=== PATIENT | female | born 1985 | race African-American/Black ===

== ENCOUNTER 2017-10-17 16:10 | Emergency (ER) | payer OTHER ==
--- NOTE | 2017-10-17 16:44 | ED Physician Documentation ---
PD HPI URI - Stated complaint Stated Complaint: SOA, FEVER - Chief complaint Chief Complaint: Resp - History obtained from History obtained from: Patient - History of Present Illness Timing - onset: How many weeks ago (2) Timing duration: Weeks (2) Timing details: Gradual onset, Still present Associated symptoms: Chills, Nasal congestion, Sinus pain, Productive cough, Dyspnea. No: Fever, Hemoptysis, NVD Contributing factors: No: Sick contact, Travel, Immunocompromised, COPD / asthma Improves by: No: Medication (seen PCP earlier in week and got Rx for Tessalon only and not improved, and cough worse/keeping her awake at night. Feeling wheezing and having purulent sputum.) Worsened by: Activity, Position (seems to cough more lying down at night.) Similar symptoms before: Diagnosis (has occasional bronchitis about every 2-3 years.) Recently seen: Clinic (earlier this week with Rx Tessalon) Review of Systems Constitutional: reports: Chills, Myalgias. denies: Fever Nose: reports: Congestion, Sinus pressure / pain Throat: reports: Sore throat Cardiac: denies: Chest pain / pressure Respiratory: reports: Dyspnea, Cough, Wheezing GI: denies: Abdominal Pain, Nausea, Vomiting, Diarrhea : denies: Dysuria Skin: denies: Rash, Lesions PD PAST MEDICAL HISTORY - Past Medical History Past Medical History: No - Past Surgical History Past Surgical History: No - Present Medications Home Medications: Ambulatory Orders Medication Instructions Recorded Confirmed Benzonatate [Tessalon Perle] 100 mg PO BID #14 capsule 04/16/15 10/17/17 Albuterol Sulf [Ventolin Hfa 1 - 2 puffs INH Q4HR PRN #1 inhaler 10/17/17 Inhaler] Dexamethasone [Decadron] 4 mg PO DAILY #5 tablet 10/17/17 Doxycycline Monohydrate 100 mg PO BID #10 tablet 10/17/17 guaiFENesin/CODEINE [Robitussin AC] 10 ml PO Q6H PRN #240 ml 10/17/17 - Allergies Allergies/Adverse Reactions: Allergies Allergy/AdvReac Type Severity Reaction Status Date / Time No Known Drug Allergies Allergy Verified 10/17/17 16:24 - Social History Does the pt smoke?: Yes Smoking Status: Current every day smoker Does the pt drink ETOH?: Yes Does the pt have substance abuse?: No - Immunizations Immunizations are current?: Yes PD ED PE NORMAL - Vitals Vital signs reviewed: Yes - General General: Alert and oriented X 3, No acute distress, Well developed/nourished - HEENT HEENT: Ears normal, Moist mucous membranes, Pharynx benign - Neck Neck: Supple, no meningeal sign, No adenopathy - Cardiac Cardiac: RRR, No murmur - Respiratory Respiratory: Other (scattered wheezes noted) - Abdomen Abdomen: Soft, Non tender - Derm Derm: Normal color, Warm and dry - Neuro Neuro: Alert and oriented X 3, No motor deficit, Normal speech Results - Vitals Vitals: Vital Signs - 24 hr 10/17/17 10/17/17 16:21 17:24 Temperature 36.4 C L Heart Rate 62 77 Respiratory 16 16 Rate Blood Pressure 143/89 H 132/66 H O2 Saturation 99 98 Oxygen O2 Source Room air Departure - Departure Disposition: 01 Home, Self Care Clinical Impression: Upper respiratory infection Qualifiers: URI type: unspecified URI Qualified Code(s): J06.9 - Acute upper respiratory infection, unspecified Condition: Stable Record reviewed to determine appropriate education?: Yes Instructions: ED Upper Resp Infec Abx Tx Follow-Up: Mary Pérez MD [Primary Care Provider] - Prescriptions: Albuterol Sulf [Ventolin Hfa Inhaler] 1 - 2 puffs INH Q4HR PRN #1 inhaler PRN Reason: Shortness Of Air/Wheezing Dexamethasone [Decadron] 4 mg PO DAILY #5 tablet Doxycycline Monohydrate 100 mg PO BID #10 tablet guaiFENesin/CODEINE [Robitussin AC] 10 ml PO Q6H PRN #240 ml PRN Reason: Cough Comments: Drink lots of fluids. Continue the Tessalon if needed for cough. Add cough medicine if needed. Use the albuterol inhaler 2 puffs 4 times a day for the next 7-10 days to help with cough and wheezing. Decadron steroid anti- inflammatory daily for 5 days to help reduce inflammation of the bronchioles and therefore cough and congestion. Doxycycline twice daily for possibility of bacterial infection (still be viral but difficult to tell). Recheck if not improving over the next several days. Discharge Date/Time: 10/17/17 17:24
[2017-10-17 17:27] VITALS: BP 132/66
== END 2017-10-17 17:24 | disposition home or self-care (01) ==
LOC: ED 16:10
DX: J06.9 Acute upper respiratory infection, unspecified (principal); F17.200 Nicotine dependence, unspecified, uncomplicated
CPT/HCPCS: 99283

== ENCOUNTER 2017-11-07 11:43 | Outpatient (CLI) | payer OTHER | END 2017-11-07 11:44 | disposition critical access hospital (66) | LOC: EMS 11:43 | PROVIDERS: ATTEND Surgery | DX: R41.82 Altered mental status, unspecified (principal) | CPT/HCPCS: A0425; A0429 ==

== ENCOUNTER 2017-11-07 12:05 | Inpatient (IN) | payer OTHER ==
[2017-11-07] MEDS ORDERED: SODIUM CHLORIDE 0.9% 1,000 ML IV ONE (12:24)
[2017-11-07] MEDS ORDERED: LORazepam 2 MG/ML VIAL IVP STA ×2 (12:25→13:28)
--- NOTE | 2017-11-07 12:37 | ED Physician Documentation ---
PD HPI ALTERED MENTAL STATUS - Stated complaint Stated Complaint: MHE - Chief complaint Chief Complaint: MHE - History obtained from History obtained from: EMS - History of Present Illness Timing - onset: Unknown (This is a young woman who presents by ambulance for altered mental status. Reportedly her name is Kandace. I guess a friend called EMS because she was acting funny. She walks to the ambulance but really has not been verbal, except the paramedics report that when she was asked what kind of music she like, she replied "gospel music." She is kept her arms in a funny position the whole time. There was no obvious evidence of drug use or paraphernalia on site. We do not really know anything about her, no medical history is available and she is nonverbal and not really cooperative with us.) Review of Systems Unable to obtain: AMS PD PAST MEDICAL HISTORY - Present Medications Home Medications: Ambulatory Orders Medication Instructions Recorded Confirmed Home Medications Unobtainable 11/07/17 11/07/17 [HOME MEDICATIONS UNOBTAINABLE] - Allergies Allergies/Adverse Reactions: Allergies Allergy/AdvReac Type Severity Reaction Status Date / Time No Known Drug Allergies Allergy Verified 10/17/17 16:24 PD ED PE NORMAL - Vitals Vital signs reviewed: Yes - General General: Other (She is alert and sitting up, she seems to look more to the left than the right. Her pupils are 4 mm and reactive. She is holding her arms out with the elbows flexed and resists any motion of them. They are symmetric. She responds slightly to stimuli but did not resist with IV placement.) - HEENT HEENT: PERRL - Neck Neck: Supple, no meningeal sign - Cardiac Cardiac: No murmur, Other (Quite tachycardic) - Respiratory Respiratory: No respiratory distress, Clear bilaterally - Abdomen Abdomen: Normal bowel sounds, Soft, Non tender - Derm Derm: Normal color, Warm and dry - Extremities Extremities: No edema, No calf tenderness / cord, Other (She is thin, multiple tattoos. The nurse estimated her height and weight, I would estimate that she is much less than a BMI of 24.) - Neuro Neuro: No motor deficit, No sensory deficit Eye Opening: Spontaneous Motor: Abnormal Flexion Verbal: None GCS Score: 8 Results - Vitals Vitals: Vital Signs - 24 hr 11/07/17 11/07/17 12:06 12:53 Temperature 36.6 C Heart Rate 159 H 155 H Respiratory 20 35 H Rate Blood Pressure 126/112 H 147/114 H O2 Saturation 100 99 Oxygen O2 Source Room air - EKG (time done) 1219 Rate: Rate (enter#) (143) Rhythm: Sinus tachycardia Other comments: Other comments (Hard to discern much in the way of detail because of artifact. The computer calls ST elevation and long QT which I am not convinced of.) - Labs Labs: Microbiology 11/07/17 14:05 CSF Culture - Preliminary Cerebral Spinal Fluid Laboratory Tests 11/07/17 11/07/17 11/07/17 12:20 12:20 12:20 WBC RBC Hgb Hct MCV MCH MCHC RDW Plt Count MPV Neut # Lymph # Crosby # Eos # Baso # Absolute Nucleated RBC Nucleated RBC % PT 13.2 H INR 1.2 Sodium 139 Potassium 3.2 L Chloride 105 Carbon Dioxide 20 L Anion Gap 14.0 H BUN 15 Creatinine 1.3 H Estimated GFR (MDRD) 49 L Glucose 166 H Lactic Acid Calcium 9.7 Magnesium 2.0 Total Bilirubin 2.9 H AST 52 H ALT 17 Alkaline Phosphatase 56 Total Creatine Kinase 3677 H* Total Protein 8.3 H Albumin 4.5 Globulin 3.8 Albumin/Globulin Ratio 1.2 Lipase 95 H TSH 1.15 Urine Color Urine Clarity Urine pH Ur Specific Bu[place] Urine Protein Urine Glucose (UA) Urine Ketones Urine Occult Blood Urine Nitrite Urine Bilirubin Urine Urobilinogen Ur Leukocyte Esterase Urine RBC Urine WBC Ur Squamous Epith Cells Urine Bacteria Urine Mucus Ur Microscopic Review Urine Culture Comments Urine HCG, Qual CSF Color CSF Clarity Xanthrochromic CSF WBC CSF RBC CSF Cell Count Tube # CSF Glucose CSF Total Protein Salicylates < 6.0 Urine Opiates Screen Ur Oxycodone Screen Urine Methadone Screen Ur Propoxyphene Screen Acetaminophen 18 Ur Barbiturates Screen Ur Tricyclics Screen Ur Phencyclidine Scrn Ur Amphetamine Screen U Methamphetamines Scrn U Benzodiazepines Scrn Urine Cocaine Screen U Cannabinoids Screen Ethyl Alcohol < 5.0 11/07/17 11/07/17 11/07/17 12:35 12:35 12:45 WBC 12.2 H RBC 4.08 L Hgb 14.1 Hct 42.7 MCV 104.7 H MCH 34.4 H MCHC 32.9 RDW 12.9 Plt Count 265 MPV 8.1 Neut # 10.3 H Lymph # 1.3 L Crosby # 0.5 Eos # 0.0 Baso # 0.0 Absolute Nucleated RBC 0.00 Nucleated RBC % 0.0 PT INR Sodium Potassium Chloride Carbon Dioxide Anion Gap BUN Creatinine Estimated GFR (MDRD) Glucose Lactic Acid 3.5 H* Calcium Magnesium Total Bilirubin AST ALT Alkaline Phosphatase Total Creatine Kinase Total Protein Albumin Globulin Albumin/Globulin Ratio Lipase TSH Urine Color Urine Clarity Urine pH Ur Specific [place] Urine Protein Urine Glucose (UA) Urine Ketones Urine Occult Blood Urine Nitrite Urine Bilirubin Urine Urobilinogen Ur Leukocyte Esterase Urine RBC Urine WBC Ur Squamous Epith Cells Urine Bacteria Urine Mucus Ur Microscopic Review Urine Culture Comments Urine HCG, Qual CSF Color CSF Clarity Xanthrochromic CSF WBC CSF RBC CSF Cell Count Tube # CSF Glucose CSF Total Protein Salicylates Urine Opiates Screen NEGATIVE Ur Oxycodone Screen NEGATIVE Urine Methadone Screen NEGATIVE Ur Propoxyphene Screen NEGATIVE Acetaminophen Ur Barbiturates Screen NEGATIVE Ur Tricyclics Screen NEGATIVE Ur Phencyclidine Scrn NEGATIVE Ur Amphetamine Screen NEGATIVE U Methamphetamines Scrn NEGATIVE U Benzodiazepines Scrn NEGATIVE Urine Cocaine Screen NEGATIVE U Cannabinoids Screen NEGATIVE Ethyl Alcohol 11/07/17 11/07/17 12:45 14:05 WBC RBC Hgb Hct MCV MCH MCHC RDW Plt Count MPV Neut # Lymph # Crosby # Eos # Baso # Absolute Nucleated RBC Nucleated RBC % PT INR Sodium Potassium Chloride Carbon Dioxide Anion Gap BUN Creatinine Estimated GFR (MDRD) Glucose Lactic Acid Calcium Magnesium Total Bilirubin AST ALT Alkaline Phosphatase Total Creatine Kinase Total Protein Albumin Globulin Albumin/Globulin Ratio Lipase TSH Urine Color DARK YELLOW Urine Clarity CLEAR Urine pH 6.0 Ur Specific Buena >=1.030 H Urine Protein 30 H Urine Glucose (UA) NEGATIVE Urine Ketones 15 H Urine Occult Blood NEGATIVE Urine Nitrite NEGATIVE Urine Bilirubin NEGATIVE Urine Urobilinogen 0.2 (NORMAL) Ur Leukocyte Esterase NEGATIVE Urine RBC 0-5 Urine WBC 0-3 Ur Squamous Epith Cells FEW Squamous Urine Bacteria Moderate H Urine Mucus Few Strands Ur Microscopic Review INDICATED Urine Culture Comments INDICATED Urine HCG, Qual NEGATIVE CSF Color COLORLESS CSF Clarity CLEAR Xanthrochromic ABSENT CSF WBC 1 CSF RBC 32 H CSF Cell Count Tube # CSF TUBE# 3 CSF Glucose 65 CSF Total Protein 26 Salicylates Urine Opiates Screen Ur Oxycodone Screen Urine Methadone Screen Ur Propoxyphene Screen Acetaminophen Ur Barbiturates Screen Ur Tricyclics Screen Ur Phencyclidine Scrn Ur Amphetamine Screen U Methamphetamines Scrn U Benzodiazepines Scrn Urine Cocaine Screen U Cannabinoids Screen Ethyl Alcohol - Rads (name of study) CT Head Radiology: EMP read contemporaneously (NAD) Procedures - Lumbar Puncture Position: Laying left side Location: L3-L4 Anesthesia: Local lidocaine CSF: Bloody but clearing Pressures: Opening Pressure (20cm) Other: Sterile prep and drape, Patient tolerated well, No complications PD MEDICAL DECISION MAKING - ED course ED course: 30-year-old woman presents altered with some 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 We did find a friend on the phone and the nurse talked to her and said she does not have a psych history and she has been like this for about 2 days. There was no mention of drug use. She did seem to improve a little bit and became a little more relaxed and her heart rate went down after a milligram of Ativan. She did have some Tylenol in her bloodstream with a little bit of elevation of the bilirubin and AST. I spoke with poison control and they did recommend starting her on the 23 hour course of N-acetylcysteine. Spoke with Dr Cardoso for admit at 1415 Note made that the RN spoke with her adoptive mother in [place], the mother has a history of paranoid schizophrenia. - Critical Care Time(min): 40 Time Includes: Direct patient care, Review records, Reassess patient, Document care, Coordinate care, Medical consult Data interpretation: Labs, Pulse ox Procedures included in critical care time: Peripheral IV Procedures excluded from critical care time: Lumbar puncture Departure - Departure Disposition: 66 [facility] DC/Xfer Clinical Impression: Tachycardia Tylenol overdose Qualifiers: Encounter type: initial encounter Injury intent: undetermined intent Qualified Code(s): T39.1X4A - Poisoning by 4-Aminophenol derivatives, undetermined, initial encounter Altered mental state Qualifiers: Altered mental status type: delirium Qualified Code(s): R41.0 - Disorientation , unspecified Rhabdomyolysis Qualifiers: Rhabdomyolysis type: non-traumatic Qualified Code(s): M62.82 - Rhabdomyolysis Condition: Critical Discharge Date/Time: 11/07/17 15:04
[2017-11-07 12:45] LABS: BASOPHILS % (AUTO) 0.3 %; EOSINOPHILS % (AUTO) 0.1 %; HGB - HEMOGLOBIN 14.1 g/dL (12.0-16.0); LYMPHOCYTES # (AUTO) 1.3 10^3/uL (1.5-3.5); LYMPHOCYTES % (AUTO) 10.5 %; MEAN CORPUSCULAR HEMOGLOBIN 34.4 pg (27.0-31.0); MEAN CORPUSCULAR HGB CONC 32.9 g/dL (32.0-36.0); MEAN CORPUSCULAR VOLUME 104.7 fL (81.0-99.0); MEAN PLATELET VOLUME 8.1 fL (7.9-10.8); MONOCYTES # (AUTO) 0.5 10^3/uL (0.0-1.0); MONOCYTES % (AUTO) 4.4 %; NEUTROPHILS # (AUTO) 10.3 10^3/uL (1.5-6.6); NEUTROPHILS % (AUTO) 84.7 %; PLT - PLATELET COUNT 265 10^3/uL (130-450); RED BLOOD COUNT 4.08 10^6/uL (4.20-5.40); RED CELL DISTRIBUTION WIDTH 12.9 % (12.0-15.0); WHITE BLOOD COUNT 12.2 x10^3/uL (4.8-10.8)
[2017-11-07 12:59] LABS: MUDS CUTOFF CONCENTRATIONS CUTOFF CONC BELOW:
[2017-11-07 13:00] LABS: GLUCOSE, URINE (UA) NEGATIVE (NEGATIVE); KETONES,URINE (UA) 15 mg/dL (NEGATIVE); LEUKOCYTE ESTERASE, URINE NEGATIVE (NEGATIVE); NITRITE,URINE NEGATIVE (NEGATIVE); OCCULT BLOOD,URINE NEGATIVE (NEGATIVE); PROTEIN,URINE 30 mg/dL (NEGATIVE); UROBILINOGEN,URINE 0.2 (NORMAL) E.U./dL (NORMAL)
[2017-11-07 13:05] LABS: BILIRUBIN,URINE NEGATIVE (NEGATIVE); CLARITY,URINE CLEAR (CLEAR); HCG UR QUAL NEGATIVE; ICTOTEST,URINE NEGATIVE
[2017-11-07 13:11] LABS: AMPHETAMINE SCREEN,URINE NEGATIVE (NEGATIVE); BENZODIAZEPINES SCREEN, URINE NEGATIVE (NEGATIVE); COCAINE SCREEN URINE NEGATIVE (NEGATIVE); METHADONE SCREEN, URINE NEGATIVE (NEGATIVE); METHAMPHETAMINES SCREEN, URINE NEGATIVE (NEGATIVE); OPIATE SCREEN, URINE NEGATIVE (NEGATIVE); OXYCODONE SCREEN, URINE NEGATIVE (NEGATIVE); PROPOXYPHENE SCREEN, URINE NEGATIVE (NEGATIVE); TRICYCLIC ANTIDEPRESSANT,URINE NEGATIVE (NEGATIVE)
[2017-11-07 13:12] LABS: INR 1.2 (0.8-1.2); PT - PROTHROMBIN TIME 13.2 secs (9.9-12.6)
[2017-11-07 13:14] LABS: BACTERIA,URINE Moderate /HPF (None Seen); MUCUS,URINE Few Strands; RBC,URINE 0-5 /HPF (0-5); SQUAMOUS EPITHELIAL CELL,UR FEW Squamous (<= Few)
[2017-11-07 13:29] LABS: ACETAMINOPHEN 18 ug/mL (10-30); ALBUMIN 4.5 g/dL (3.2-5.5); ALBUMIN/GLOBULIN RATIO 1.2 (1.0-2.2); ALKALINE PHOSPHATASE 56 IU/L (42-121); ALT ALANINE AMINOTRANSFERASE 17 IU/L (10-60); AST ASPARTATE AMINOTRANSFERASE 52 IU/L (10-42); BILIRUBIN,TOTAL 2.9 mg/dL (0.2-1.0); BUN - BLOOD UREA NITROGEN 15 mg/dL (6-20); CALCIUM 9.7 mg/dL (8.5-10.3); CARBON DIOXIDE - CO2 20 mmol/L (21-32); CHLORIDE 105 mmol/L (101-111); CREATININE 1.3 mg/dL (0.4-1.0); GFR - MDRD 49 (>89); GLUCOSE 166 mg/dL (70-100); LIPASE 95 U/L (22-51); SODIUM 139 mmol/L (135-145); TOTAL PROTEIN 8.3 g/dL (6.7-8.2)
[2017-11-07 13:38] LABS: SALICYLATE < 6.0 mg/dL
[2017-11-07] MEDS ORDERED: LACTATED RINGERS 1,000 ML IV ONE (13:40)
[2017-11-07] MEDS ORDERED: ACETYLCYSTEINE IV STA (13:42)
[2017-11-07] MEDS ORDERED: ACETYLCYSTEINE 3,000 MG in DEXTROSE 5% 500 ML IV ONE (13:42)
[2017-11-07] MEDS ORDERED: DEXTROSE 5% IV STA (13:42)
[2017-11-07] MEDS ORDERED: SODIUM CHLORIDE FLUSH 0.9% 10 ML SYRINGE IVP PRN (14:19)
[2017-11-07] MEDS ORDERED: ONDANSETRON 4 MG/2 ML VIAL IVP PRN (14:19)
[2017-11-07] MEDS ORDERED: ONDANSETRON ODT 4 MG TABLET TL PRN (14:19)
[2017-11-07 14:43] LABS: CLARITY,CSF CLEAR (CLEAR); COLOR,CSF COLORLESS (COLORLESS); CSF TUBE # CSF TUBE# 3; CSF XANTHOCHROMIA ABSENT (ABSENT); RED BLOOD CELL,CSF 32 /mm^3 (0-1); WHITE BLOOD CELL,CSF 1 /mm^3 (0-5)
[2017-11-07 14:44] LABS: CSF - GLUCOSE 65 mg/dL (45-70)
[2017-11-07] MEDS ORDERED: DEXTROSE 5% IV SCH (15:00)
[2017-11-07] MEDS ORDERED: ACETYLCYSTEINE IV SCH (15:00)
[2017-11-07] MEDS ORDERED: ACETYLCYSTEINE 3,000 MG in DEXTROSE 5% 500 ML IV SCH (15:00)
--- NOTE | 2017-11-07 15:14 | CT Report ---
EXAM: CT HEAD EXAM DATE: 11/07/2017 01:04 PM. CLINICAL HISTORY: Altered, unable to speak COMPARISON: None. TECHNIQUE: Multiaxial CT images were obtained from the foramen magnum to the vertex. Reformats: Coron al. IV contrast: None. In accordance with CT protocol optimization, one or more of the following dose reduction techniques w ere utilized for this exam: automated exposure control, adjustment of mA and/or KV based on patient s ize, or use of iterative reconstructive technique. FINDINGS: Parenchyma: No intraparenchymal hemorrhage. No evidence of mass, midline shift, or CT findings of inf arction. Hong-white differentiation is distinct. Extraaxial Spaces: Normal for age. Coarse calcifications along the falx. No subdural or epidural xin ections identified. Ventricles: Normal in size and position. Sinuses and Orbits: Imaged paranasal sinuses, orbits, and mastoids show no significant abnormality. Bones: No evidence of fracture or calvarial defect. Other: None. IMPRESSION: No acute intracranial abnormality. [facility] Referring Provider Line: [phone] SITE ID: [id number]
[2017-11-07] MEDS: SODIUM CHLORIDE 0.9% 1,000 ML IV SCH ×2 (15:45→22:27)
[2017-11-07] MEDS ORDERED: METOPROLOL 5 MG/5 ML VIAL IVP PRN (15:55)
[2017-11-07] MEDS: PANTOPRAZOLE 40 MG VIAL IVP SCH (15:59)
[2017-11-07] MEDS: SODIUM CHLORIDE FLUSH 0.9% 10 ML SYRINGE IVP SCH (17:12)
[2017-11-07] MEDS ORDERED: HALOPERIDOL 5 MG/ML VIAL IM SCH (18:48)
[2017-11-07] MEDS ORDERED: ACETYLCYSTEINE 6,000 MG in DEXTROSE 5% 1,000 ML IV ONE ×2 (19:00)
[2017-11-07] MEDS ORDERED: ACETYLCYSTEINE 5,000 MG in DEXTROSE 5% 1,000 ML IV ONE (19:01)
[2017-11-07] MEDS ORDERED: HALOPERIDOL 5 MG/ML VIAL IM ONE (20:39)
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
[2017-11-07 23:33] LABS: CK- CREATINE KINASE 3677 IU/L (22-269)
[2017-11-08] MEDS: SODIUM CHLORIDE FLUSH 0.9% 10 ML SYRINGE IVP SCH ×3 (02:41→22:46)
[2017-11-08] MEDS: SODIUM CHLORIDE 0.9% 1,000 ML IV SCH ×3 (03:28→16:32)
[2017-11-08 05:40] LABS: BASOPHILS % (AUTO) 0.2 %; EOSINOPHILS % (AUTO) 0.1 %; HGB - HEMOGLOBIN 10.9 g/dL (12.0-16.0); LYMPHOCYTES # (AUTO) 1.7 10^3/uL (1.5-3.5); LYMPHOCYTES % (AUTO) 30.4 %; MEAN CORPUSCULAR HEMOGLOBIN 34.4 pg (27.0-31.0); MEAN CORPUSCULAR HGB CONC 33.1 g/dL (32.0-36.0); MEAN CORPUSCULAR VOLUME 103.9 fL (81.0-99.0); MEAN PLATELET VOLUME 7.8 fL (7.9-10.8); MONOCYTES # (AUTO) 0.5 10^3/uL (0.0-1.0); MONOCYTES % (AUTO) 8.8 %; NEUTROPHILS # (AUTO) 3.5 10^3/uL (1.5-6.6); NEUTROPHILS % (AUTO) 60.5 %; PLT - PLATELET COUNT 219 10^3/uL (130-450); RED BLOOD COUNT 3.18 10^6/uL (4.20-5.40); RED CELL DISTRIBUTION WIDTH 12.8 % (12.0-15.0); WHITE BLOOD COUNT 5.7 x10^3/uL (4.8-10.8)
[2017-11-08 05:48] LABS: ALBUMIN 3.1 g/dL (3.2-5.5); ALBUMIN/GLOBULIN RATIO 1.1 (1.0-2.2); BILIRUBIN,TOTAL 3.8 mg/dL (0.2-1.0); CALCIUM 8.4 mg/dL (8.5-10.3); CREATININE 0.6 mg/dL (0.4-1.0); TOTAL PROTEIN 5.9 g/dL (6.7-8.2)
[2017-11-08] MEDS: PANTOPRAZOLE 40 MG VIAL IVP SCH ×2 (07:25→08:17)
[2017-11-08] MEDS ORDERED: SODIUM CHLORIDE FLUSH 0.9% 10 ML SYRINGE ONE (08:18)
[2017-11-08] MEDS ORDERED: POTASSIUM CHLORIDE INJ 40 MEQ in SODIUM CHLORIDE 0.9% 480 ML IV ONE (09:30)
--- NOTE | 2017-11-08 12:47 | PROVIDER PROGRESS NOTE ---
Subjective - Prog Note Date Prog Note Date: 11/08/17 Prog Note Time: 12:44 - Subjective Subjective: yesterday she was noverbal unless you tried to put in markham and she would occ spontaneously accuse us of being demons. Limbs were "frozen" in position at first. In early evening the pulled out IV's and needed 6 people to restrain + Haldol to get back in bed for N-acetylcysteine drip and IVF for her CPK/ dehydration. Overnight, she promised the nurse she would behave so restraints off. She is now laying in bed in normal way, curled on her side, sleeping. Responds yes/no but no complete sentences. IV still in. Current Medications - Current Medications Current Medications: Active Medications Potassium Chloride 40 meq/ (Sodium Chloride) 500 mls @ 125 mls/hr IV ONCE ONE Stop: 11/08/17 13:29 Metoprolol Tartrate (Lopressor Inj) 5 mg IVP Q6H PRN PRN Reason: Tachycardia Last Admin: 11/07/17 16:16 Dose: 5 mg Ondansetron HCl (Zofran Inj) 4 mg IVP Q6HR PRN PRN Reason: Nausea / Vomiting Ondansetron HCl (Zofran Odt) 4 mg TL Q6HR PRN PRN Reason: Nausea / Vomiting Pantoprazole Sodium (Protonix) 40 mg IVP QDAC [facility] Last Admin: 11/08/17 08:17 Dose: 40 mg Sodium Chloride (Normal Saline Flush 0.9%) 10 ml IVP 0100,0900,1700 [facility] Last Admin: 11/08/17 08:17 Dose: 10 ml Sodium Chloride (Normal Saline Flush 0.9%) 10 ml IVP PRN PRN PRN Reason: NEEDED PER PROVIDER ORDERS Last Admin: 11/07/17 16:00 Dose: 20 ml Home Medications Unobtainable [HOME MEDICATIONS UNOBTAINABLE] 11/07/17 Objective - Vital Signs/Intake & Output Reviewed Vital Signs: Yes Vital Signs: Vital Signs x48h Temp Pulse Resp BP Pulse Ox 11/08/17 08:00 84 C H 84 16 109/70 97 11/08/17 05:00 84 16 Intake & Output: Intake & Output 11/05/17 11/06/17 11/07/17 11/08/17 23:59 23:59 23:59 23:59 Intake Total 2316.000 2386.667 Output Total 400 400 Balance 6099.134 6077.667 - Objective General Appearance: positive: No acute distress Eyes Bilateral: positive: PERRL, EOMI Neck: positive: No JVD Respiratory: positive: Chest non-tender. negative: Wheezes, Rales, Rhonchi Cardiovascular: positive: Regular rate & rhythm. negative: Tachycardia (she was up to 150 and needed one dose of metoprolol. Today she is in the 80's), Systolic murmur, Gallop/S4, Friction rub Abdomen: positive: Non-tender, No organomegaly, Nml bowel sounds, No distention Extremities: positive: Full ROM, No pedal edema Neurologic/Psychiatric: positive: CN's nml (2-12), Motor nml - Lab Results Fish Bones: 11/08/17 05:10 11/08/17 05:10 Other Labs: Lab Results x24hrs 11/08/17 11/08/17 11/08/17 Range/Units 05:10 05:10 05:10 WBC 5.7 (4.8-10.8) x10^3/uL RBC 3.18 L (4.20-5.40) 10^6/uL Hgb 10.9 L (12.0-16.0) g/dL Hct 33.0 L (37.0-47.0) % MCV 103.9 H (81.0-99.0) fL MCH 34.4 H (27.0-31.0) pg MCHC 33.1 (32.0-36.0) g/dL RDW 12.8 (12.0-15.0) % Plt Count 219 (130-450) 10^3/uL MPV 7.8 L (7.9-10.8) fL Neut # 3.5 (1.5-6.6) 10^3/uL Lymph # 1.7 (1.5-3.5) 10^3/uL Gilmer # 0.5 (0.0-1.0) 10^3/uL Eos # 0.0 (0.0-0.7) 10^3/uL Baso # 0.0 (0.0-0.1) 10^3/uL Absolute Nucleated RBC 0.00 x10^3/uL Nucleated RBC % 0.0 /100WBC Sodium 138 (135-145) mmol/L Potassium 3.4 L (3.5-5.0) mmol/L Chloride 112 H (101-111) mmol/L Carbon Dioxide 19 L (21-32) mmol/L Anion Gap 7.0 (6-13) BUN 6 (6-20) mg/dL Creatinine 0.6 (0.4-1.0) mg/dL Estimated GFR (MDRD) 142 (>89) Glucose 77 (70-100) mg/dL Lactic Acid (0.5-2.2) mmol/L Calcium 8.4 L (8.5-10.3) mg/dL Total Bilirubin 3.8 H (0.2-1.0) mg/dL AST 34 (10-42) IU/L ALT 15 (10-60) IU/L Alkaline Phosphatase 42 (42-121) IU/L Total Creatine Kinase 3124 H* (22-269) IU/L Total Protein 5.9 L (6.7-8.2) g/dL Albumin 3.1 L (3.2-5.5) g/dL Globulin 2.8 (2.1-4.2) g/dL Albumin/Globulin Ratio 1.1 (1.0-2.2) Acetaminophen (10-30) ug/mL 11/08/17 11/07/17 11/07/17 Range/Units 05:10 23:50 18:10 WBC (4.8-10.8) x10^3/uL RBC (4.20-5.40) 10^6/uL Hgb (12.0-16.0) g/dL Hct (37.0-47.0) % MCV (81.0-99.0) fL MCH (27.0-31.0) pg MCHC (32.0-36.0) g/dL RDW (12.0-15.0) % Plt Count (130-450) 10^3/uL MPV (7.9-10.8) fL Neut # (1.5-6.6) 10^3/uL Lymph # (1.5-3.5) 10^3/uL Gilmer # (0.0-1.0) 10^3/uL Eos # (0.0-0.7) 10^3/uL Baso # (0.0-0.1) 10^3/uL Absolute Nucleated RBC x10^3/uL Nucleated RBC % /100WBC Sodium (135-145) mmol/L Potassium (3.5-5.0) mmol/L Chloride (101-111) mmol/L Carbon Dioxide (21-32) mmol/L Anion Gap (6-13) BUN (6-20) mg/dL Creatinine (0.4-1.0) mg/dL Estimated GFR (MDRD) (>89) Glucose (70-100) mg/dL Lactic Acid 0.8 (0.5-2.2) mmol/L Calcium (8.5-10.3) mg/dL Total Bilirubin (0.2-1.0) mg/dL AST (10-42) IU/L ALT (10-60) IU/L Alkaline Phosphatase (42-121) IU/L Total Creatine Kinase (22-269) IU/L Total Protein (6.7-8.2) g/dL Albumin (3.2-5.5) g/dL Globulin (2.1-4.2) g/dL Albumin/Globulin Ratio (1.0-2.2) Acetaminophen < 10 L < 10 L (10-30) ug/mL ABX Reporting Has patient been on IV antibiotics over the past 48 hours?: No Assessment/Plan - Problem List (1) Catalepsy Impression: so far not a drug reaction, not infectious, and neg CT of head. CSF culture neg at 24 hours. Tox screen negative. CT head negative. 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 However we are still making sure nothing else has caused this and I will order MRI Head for next couple of days once she is off all IV's and more responsive. with an abundance of caution, we are treating the tylenol level found in her as OD but the repeat levels of tylenol are all low. I have kept the N acetylcystein ongoing since Mark did find an article in Biological Psychiatry from 04/06/16 where N-acetylcysteine supplmentation was used in an individual with G6PD deficiency who had associated psychosis. Once her CPK and creat are both nml, will ask for CDP eval and possible telepsych eval. (2) Elevated liver enzymes Impression: which can be part of G6PD def. AST/ALT better but bili slightly worse No abd pain Being treat as APAP OD just in case. Check acute hepatitis panel check US (3) Abnormal urinalysis Impression: did not order abx yesterday, will do so today. no symptoms of fever. WBC nml now. ue IV levaquin since not taking po voluntarily (4) Rhabdomyolysis Impression: with dehydration and acute kidney injury. On 200 cc/hr NS CPK has come down but not nml Creat is now nml at 0.6 Continue IVF for CPK Qualifiers: Rhabdomyolysis type: non-traumatic Qualified Code(s): M62.82 - Rhabdomyolysis (5) Hypokalemia Impression: supplement IV since refusing po.
--- NOTE | 2017-11-08 17:57 | Ultrasound Report ---
EXAM: ABDOMEN ULTRASOUND LIMITED, RUQ EXAM DATE: 11/08/2017 05:41 PM. CLINICAL HISTORY: Abnormal LFTs. COMPARISON: None. TECHNIQUE: Real-time scanning was performed with static images obtained. FINDINGS: Liver: Mild increased echogenicity. 15 cm. Main portal vein flow: Hepatopetal. Gallbladder: Not evaluated by the pipe fitter. Biliary System: CBD measures 1-2 mm. No visualized bile duct dilation. Other: None. IMPRESSION: Mild increased liver echogenicity is nonspecific but may reflect steatosis. [facility] Referring Provider Line: [phone] SITE ID: [id number]
[2017-11-09] MEDS: SODIUM CHLORIDE 0.9% 1,000 ML IV SCH (02:34)
[2017-11-09] MEDS: SODIUM CHLORIDE FLUSH 0.9% 10 ML SYRINGE IVP SCH ×3 (03:51→19:28)
[2017-11-09 05:08] LABS: BASOPHILS % (AUTO) 0.6 %; EOSINOPHILS % (AUTO) 0.1 %; HGB - HEMOGLOBIN 10.5 g/dL (12.0-16.0); LYMPHOCYTES # (AUTO) 1.7 10^3/uL (1.5-3.5); LYMPHOCYTES % (AUTO) 33.2 %; MEAN CORPUSCULAR HEMOGLOBIN 34.2 pg (27.0-31.0); MEAN CORPUSCULAR HGB CONC 32.7 g/dL (32.0-36.0); MEAN CORPUSCULAR VOLUME 104.5 fL (81.0-99.0); MEAN PLATELET VOLUME 7.8 fL (7.9-10.8); MONOCYTES # (AUTO) 0.4 10^3/uL (0.0-1.0); MONOCYTES % (AUTO) 8.7 %; NEUTROPHILS # (AUTO) 2.9 10^3/uL (1.5-6.6); NEUTROPHILS % (AUTO) 57.4 %; PLT - PLATELET COUNT 217 10^3/uL (130-450); RED BLOOD COUNT 3.07 10^6/uL (4.20-5.40); RED CELL DISTRIBUTION WIDTH 12.6 % (12.0-15.0)
[2017-11-09 05:14] LABS: ALBUMIN 3.1 g/dL (3.2-5.5); ALBUMIN/GLOBULIN RATIO 1.1 (1.0-2.2); CALCIUM 8.6 mg/dL (8.5-10.3); CREATININE 0.8 mg/dL (0.4-1.0); TOTAL PROTEIN 5.8 g/dL (6.7-8.2)
[2017-11-09] MEDS: PANTOPRAZOLE 40 MG VIAL IVP SCH (07:37)
[2017-11-09 10:26] LABS: MEAN RETIC VALUE 131.4; RED BLOOD COUNT 3.47 10^6/uL (4.20-5.40)
--- NOTE | 2017-11-09 11:51 | PROVIDER PROGRESS NOTE ---
Subjective - Prog Note Date Prog Note Date: 11/09/17 Prog Note Time: 11:49 - Subjective Subjective: she is now answering questions with yes/no. Watching TV. Can't remember what happened. Denies any particular pain. No sob, no cp. Refusing to eat. Refusing to take po. Wants to go home. Current Medications - Current Medications Current Medications: Active Medications Ondansetron HCl (Zofran Inj) 4 mg IVP Q6HR PRN PRN Reason: Nausea / Vomiting Ondansetron HCl (Zofran Odt) 4 mg TL Q6HR PRN PRN Reason: Nausea / Vomiting Sodium Chloride (Normal Saline Flush 0.9%) 10 ml IVP 0100,0900,1700 HEMA Last Admin: 11/09/17 09:00 Dose: 10 ml Sodium Chloride (Normal Saline Flush 0.9%) 10 ml IVP PRN PRN PRN Reason: NEEDED PER PROVIDER ORDERS Last Admin: 11/07/17 16:00 Dose: 20 ml Home Medications Unobtainable [HOME MEDICATIONS UNOBTAINABLE] 11/07/17 I have stopped lopressor, IVF with NS, N acetylcystein was done yesterday. Objective - Vital Signs/Intake & Output Reviewed Vital Signs: Yes Vital Signs: Vital Signs x48h Temp Pulse Resp BP Pulse Ox 11/09/17 08:00 36.7 C 80 16 139/99 H 100 11/09/17 05:00 36.8 C 82 16 98 Intake & Output: Intake & Output 11/06/17 11/07/17 11/08/17 11/09/17 23:59 23:59 23:59 23:59 Intake Total 2316.000 5421.667 896.666 Output Total 400 400 Balance 7028.658 4408.667 896.666 - Objective General Appearance: positive: No acute distress, Alert, Other (sitting up in chair. very thin black female) Eyes Bilateral: positive: PERRL, EOMI Eyes: OU Scleral icterus ENT: positive: Pharynx nml Neck: positive: No JVD. negative: Stiff neck, Carotid bruit Respiratory: positive: Chest non-tender. negative: Wheezes, Rales, Rhonchi Cardiovascular: positive: Regular rate & rhythm, Other (tachycardia resolve since 11/07/17). negative: Gallop/S4, Friction rub Abdomen: positive: Non-tender, No organomegaly, Nml bowel sounds, No distention Skin: positive: Warm, Dry Extremities: positive: Full ROM, No pedal edema Neurologic/Psychiatric: positive: Oriented x3, CN's nml (2-12), Motor nml. negative: Mood/affect nml (withdrawn, still a little paranoid with refusal of meds and food.) - Lab Results Fish Bones: 11/09/17 04:40 11/09/17 04:40 Other Labs: Lab Results x24hrs 11/09/17 11/09/17 11/09/17 Range/Units 10:02 10:02 04:40 WBC (4.8-10.8) x10^3/uL RBC 3.47 L (4.20-5.40) 10^6/uL Hgb (12.0-16.0) g/dL Hct (37.0-47.0) % MCV (81.0-99.0) fL MCH (27.0-31.0) pg MCHC (32.0-36.0) g/dL RDW (12.0-15.0) % Plt Count (130-450) 10^3/uL MPV (7.9-10.8) fL Reticulocyte % (Auto) 1.28 (0.5-2.3) % Neut # (1.5-6.6) 10^3/uL Lymph # (1.5-3.5) 10^3/uL [place] # (0.0-1.0) 10^3/uL Eos # (0.0-0.7) 10^3/uL Baso # (0.0-0.1) 10^3/uL Absolute Nucleated RBC x10^3/uL Nucleated RBC % /100WBC Absolute Retic 0.045 (0.020-0.110) 10^6/uL Sodium (135-145) mmol/L Potassium (3.5-5.0) mmol/L Chloride (101-111) mmol/L Carbon Dioxide (21-32) mmol/L Anion Gap (6-13) BUN (6-20) mg/dL Creatinine (0.4-1.0) mg/dL Estimated GFR (MDRD) (>89) Glucose (70-100) mg/dL Calcium (8.5-10.3) mg/dL Total Bilirubin (0.2-1.0) mg/dL AST (10-42) IU/L ALT (10-60) IU/L Alkaline Phosphatase (42-121) IU/L Lactate Dehydrogenase 219 (91-225) IU/L Total Creatine Kinase 1754 H* (22-269) IU/L Total Protein (6.7-8.2) g/dL Albumin (3.2-5.5) g/dL Globulin (2.1-4.2) g/dL Albumin/Globulin Ratio (1.0-2.2) 11/09/17 11/09/17 Range/Units 04:40 04:40 WBC 5.0 (4.8-10.8) x10^3/uL RBC 3.07 L (4.20-5.40) 10^6/uL Hgb 10.5 L (12.0-16.0) g/dL Hct 32.1 L (37.0-47.0) % MCV 104.5 H (81.0-99.0) fL MCH 34.2 H (27.0-31.0) pg MCHC 32.7 (32.0-36.0) g/dL RDW 12.6 (12.0-15.0) % Plt Count 217 (130-450) 10^3/uL MPV 7.8 L (7.9-10.8) fL Reticulocyte % (Auto) (0.5-2.3) % Neut # 2.9 (1.5-6.6) 10^3/uL Lymph # 1.7 (1.5-3.5) 10^3/uL [place] # 0.4 (0.0-1.0) 10^3/uL Eos # 0.0 (0.0-0.7) 10^3/uL Baso # 0.0 (0.0-0.1) 10^3/uL Absolute Nucleated RBC 0.00 x10^3/uL Nucleated RBC % 0.0 /100WBC Absolute Retic (0.020-0.110) 10^6/uL Sodium 137 (135-145) mmol/L Potassium 3.7 (3.5-5.0) mmol/L Chloride 111 (101-111) mmol/L Carbon Dioxide 20 L (21-32) mmol/L Anion Gap 6.0 (6-13) BUN 7 (6-20) mg/dL Creatinine 0.8 (0.4-1.0) mg/dL Estimated GFR (MDRD) 102 (>89) Glucose 67 L (70-100) mg/dL Calcium 8.6 (8.5-10.3) mg/dL Total Bilirubin 7.0 H (0.2-1.0) mg/dL AST 27 (10-42) IU/L ALT 14 (10-60) IU/L Alkaline Phosphatase 40 L (42-121) IU/L Lactate Dehydrogenase (91-225) IU/L Total Creatine Kinase (22-269) IU/L Total Protein 5.8 L (6.7-8.2) g/dL Albumin 3.1 L (3.2-5.5) g/dL Globulin 2.7 (2.1-4.2) g/dL Albumin/Globulin Ratio 1.1 (1.0-2.2) ABX Reporting Has patient been on IV antibiotics over the past 48 hours?: Yes Assessment/Plan - Problem List (1) Catalepsy Impression: so far not a drug reaction, not infectious, and neg CT of head. CSF culture neg at 48 hours. Tox screen negative. CT head negative. 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 However we are still making sure nothing else has caused this and I will order MRI Head with and without for tomorrow. With an abundance of caution, we were treating the tylenol level found in her as OD but the repeat levels of tylenol are all low. I kept the N acetylcysteine ongoing since Mark did find an article in Biological Psychiatry from 04/06/16 where N-acetylcysteine supplmentation was used in an individual with G6PD deficiency who had associated psychosis. that drip has now finished. Creat is now nml, and cpk elevation is now high but not clinically significant. [facility] and possible [facility] eval. (2) Elevated liver enzymes Impression: which can be part of G6PD def. AST/ALT better but bili worse No abd pain Was treated as APAP OD just in case. Check acute hepatitis panel, done but results pending Check retic count and LDH Limited US of liver negative. (3) Abnormal urinalysis Impression: did not order abx yesterday, will do so today. no symptoms of fever. WBC nml now. ue IV levaquin since not taking po voluntarily but since she is really not symptomatic, will stop levaquin today (4) Rhabdomyolysis Impression: with dehydration and acute kidney injury. On 200 cc/hr NS CPK has come down by 50% and not clinically affecting her anymore. Creat is now nml at 0.6 Stop IVF for CPK Qualifiers: Rhabdomyolysis type: non-traumatic Qualified Code(s): M62.82 - Rhabdomyolysis (5) Hypokalemia Impression: supplement IV since refusing po.
[2017-11-09] MEDS ORDERED: diphenhydrAMINE 25 MG CAPSULE PO SCH (13:21)
[2017-11-09] MEDS ORDERED: ACETAMINOPHEN 325 MG TABLET PO PRN (13:21)
[2017-11-10] MEDS: SODIUM CHLORIDE FLUSH 0.9% 10 ML SYRINGE IVP SCH ×3 (02:56→17:26)
[2017-11-10 08:36] LABS: BASOPHILS % (AUTO) 0.5 %; HGB - HEMOGLOBIN 12.6 g/dL (12.0-16.0); LYMPHOCYTES # (AUTO) 0.9 10^3/uL (1.5-3.5); LYMPHOCYTES % (AUTO) 21.8 %; MEAN CORPUSCULAR HEMOGLOBIN 35.1 pg (27.0-31.0); MEAN CORPUSCULAR VOLUME 103.2 fL (81.0-99.0); MEAN PLATELET VOLUME 7.7 fL (7.9-10.8); MONOCYTES # (AUTO) 0.3 10^3/uL (0.0-1.0); MONOCYTES % (AUTO) 6.6 %; NEUTROPHILS # (AUTO) 2.9 10^3/uL (1.5-6.6); NEUTROPHILS % (AUTO) 71.1 %; PLT - PLATELET COUNT 254 10^3/uL (130-450); RED BLOOD COUNT 3.58 10^6/uL (4.20-5.40); RED CELL DISTRIBUTION WIDTH 12.6 % (12.0-15.0); WHITE BLOOD COUNT 4.1 x10^3/uL (4.8-10.8)
[2017-11-10 08:55] LABS: ALBUMIN 4.3 g/dL (3.2-5.5); ALBUMIN/GLOBULIN RATIO 1.2 (1.0-2.2); ALKALINE PHOSPHATASE 53 IU/L (42-121); ALT ALANINE AMINOTRANSFERASE 19 IU/L (10-60); AST ASPARTATE AMINOTRANSFERASE 32 IU/L (10-42); BILIRUBIN,TOTAL 4.2 mg/dL (0.2-1.0); BUN - BLOOD UREA NITROGEN < 5 mg/dL (6-20); CALCIUM 8.9 mg/dL (8.5-10.3); CARBON DIOXIDE - CO2 16 mmol/L (21-32); CHLORIDE 106 mmol/L (101-111); CREATININE 0.7 mg/dL (0.4-1.0); GFR - MDRD 119 (>89); GLUCOSE 105 mg/dL (70-100); SODIUM 135 mmol/L (135-145); TOTAL PROTEIN 7.9 g/dL (6.7-8.2)
[2017-11-10] MEDS ORDERED: GADOBUTROL 7.5 MMOL/7.5 ML SYRINGE ONE (10:57)
--- NOTE | 2017-11-10 11:42 | MRI Report ---
EXAM: MRI BRAIN WITHOUT CONTRAST EXAM DATE: 11/10/2017 11:21 AM. CLINICAL HISTORY: 32-year-old woman with new psychosis and history of g6pd deficiency COMPARISON: Noncontrast head CT on 11/07/2017. TECHNIQUE: Multiplanar, multisequence T1-weighted and fluid-sensitive MR sequences of the brain were performed. The patient terminated the exam prematurely. Not all sequences could be performed. Other: None. IV Contrast: None. FINDINGS: Parenchyma: No evidence of acute infarct on diffusion weighted sequence. Small focus of nonspecific T 2 hyperintensity is present in the left frontal periventricular white matter appear in no evidence of prior hemorrhage on susceptibility weighted sequence. Pituitary: Unremarkable. Ventricles and Extra-axial Spaces: Ventricles are symmetric and normal in size for age. Extra-axial s paces are unremarkable. Orbits: Unremarkable. Sinuses: Paranasal sinuses and mastoid air cells are clear. Major Vascular Flow Voids: Intact. IMPRESSION: 1. No acute intracranial abnormality. Specifically, no evidence of acute infarct, hemorrhage, or mass lesion. 2. Small focus of T2 hyperintensity is present in the left frontal periventricular white matter, a no nspecific finding commonly seen in this age group. [facility] Referring Provider Line: [phone] SITE ID: [id number]
[2017-11-10 16:22] LABS: HSV 2 DNA NOT DETECTED; SOURCE NOT GIVEN
[2017-11-10] MEDS: POTASSIUM CHLOR 20 MEQ/100 ML 20 MEQ/100 ML BAG IV SCH ×2 (16:30→17:25)
--- NOTE | 2017-11-10 16:33 | PROVIDER PROGRESS NOTE ---
Subjective - Prog Note Date Prog Note Date: 11/10/17 Prog Note Time: 16:30 - Subjective Subjective: refusing to eat: puts water in mouth and spits it out in sink only drinks cranberry juice to help the worms coming out of her vagina that she can see. She asks the nurse to look at them, not there. She is asking for mental help. Is stating she would kill herself at home with knives because of the demon voice. She doesn't want to hear the voices. We asked what she would use in this room and she would use the plastic knives and forks. paces in room. Over the course of the day, pacing is worse and worse. We tried MRI just to see if there is white matter disease associated w her G6PD and she asked to come out of the tube half way thru. Current Medications - Current Medications Current Medications: Active Medications Potassium Chloride (Potassium Chloride) 20 meq in 100 mls @ 100 mls/hr IV Q1H HEMA Stop: 11/10/17 17:59 Last Admin: 11/10/17 16:30 Dose: Not Given Ondansetron HCl (Zofran Inj) 4 mg IVP Q6HR PRN PRN Reason: Nausea / Vomiting Ondansetron HCl (Zofran Odt) 4 mg TL Q6HR PRN PRN Reason: Nausea / Vomiting Sodium Chloride (Normal Saline Flush 0.9%) 10 ml IVP 0100,0900,1700 [facility] Last Admin: 11/10/17 16:04 Dose: Not Given Sodium Chloride (Normal Saline Flush 0.9%) 10 ml IVP PRN PRN PRN Reason: NEEDED PER PROVIDER ORDERS Last Admin: 11/07/17 16:00 Dose: 20 ml Pnv95/Ferrous Fumarate/FA [ Tablet] 1 tab PO DAILY 11/09/17 Objective - Vital Signs/Intake & Output Reviewed Vital Signs: Yes Vital Signs: Vital Signs x48h Temp Pulse Resp BP Pulse Ox 11/10/17 08:40 36.8 C 87 16 137/94 H 100 Intake & Output: Intake & Output 11/07/17 11/08/17 11/09/17 11/10/17 23:59 23:59 23:59 23:59 Intake Total 2316.000 5421.667 1963.333 700 Output Total 400 400 Balance 9202.115 1478.667 1963.333 700 - Objective General Appearance: positive: Alert, Moderate distress (emotionally), Other ( thin cachectic black female) Eyes Bilateral: positive: PERRL, EOMI ENT: positive: Pharynx nml Neck: positive: No JVD. negative: Stiff neck, Carotid bruit Respiratory: positive: Chest non-tender. negative: Wheezes, Rales, Rhonchi Cardiovascular: positive: Regular rate & rhythm. negative: Gallop/S4, Friction rub Abdomen: positive: Non-tender, No organomegaly, Nml bowel sounds, No distention Skin: positive: Warm, Dry Extremities: positive: Full ROM, No pedal edema, Other (very thin) Neurologic/Psychiatric: positive: Oriented x3, CN's nml (2-12), Motor nml, Depressed mood/affect. negative: Mood/affect nml (hallucinations, paranoia) - Lab Results Fish Bones: 11/10/17 08:20 11/10/17 08:15 Other Labs: Lab Results x24hrs 11/10/17 11/10/17 11/10/17 Range/Units 08:20 08:20 08:15 WBC 4.1 L (4.8-10.8) x10^3/uL RBC 3.58 L (4.20-5.40) 10^6/uL Hgb 12.6 (12.0-16.0) g/dL Hct 37.0 (37.0-47.0) % MCV 103.2 H (81.0-99.0) fL MCH 35.1 H (27.0-31.0) pg MCHC 34.0 (32.0-36.0) g/dL RDW 12.6 (12.0-15.0) % Plt Count 254 (130-450) 10^3/uL MPV 7.7 L (7.9-10.8) fL Neut # 2.9 (1.5-6.6) 10^3/uL Lymph # 0.9 L (1.5-3.5) 10^3/uL [place] # 0.3 (0.0-1.0) 10^3/uL Eos # 0.0 (0.0-0.7) 10^3/uL Baso # 0.0 (0.0-0.1) 10^3/uL Absolute Nucleated RBC 0.00 x10^3/uL Nucleated RBC % 0.0 /100WBC Sodium 135 (135-145) mmol/L Potassium 3.4 L (3.5-5.0) mmol/L Chloride 106 (101-111) mmol/L Carbon Dioxide 16 L (21-32) mmol/L Anion Gap 13.0 (6-13) BUN < 5 L (6-20) mg/dL Creatinine 0.7 (0.4-1.0) mg/dL Estimated GFR (MDRD) 119 (>89) Glucose 105 H (70-100) mg/dL Calcium 8.9 (8.5-10.3) mg/dL Total Bilirubin 4.2 H (0.2-1.0) mg/dL AST 32 (10-42) IU/L ALT 19 (10-60) IU/L Alkaline Phosphatase 53 (42-121) IU/L Total Creatine Kinase 1250 H* (22-269) IU/L Total Protein 7.9 (6.7-8.2) g/dL Albumin 4.3 (3.2-5.5) g/dL Globulin 3.6 (2.1-4.2) g/dL Albumin/Globulin Ratio 1.2 (1.0-2.2) ABX Reporting Has patient been on IV antibiotics over the past 48 hours?: Yes Assessment/Plan - Problem List (1) Catalepsy Impression: she prsented as disheveled thin female brought in for worsening behavior for 2 maybe 3 weeks before admission. No previous psych hx according to friends and family. We did work up and so far not a drug reaction, not infectious, and neg CT of head. CSF culture neg at 72 hours. Tox screen negative. CT head negative. 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 She has slowly become more and more verbal and more and more active in her room but it is a pacing, and she went from being silent to now being very verbal and descriptive about her thoughts. Nursing has been walking her in the hallways and they are doing laps. I ordered MRI Head with and without to see if she had white matter disease changes associated with G6PD but she became frightened in the scanner and asked to get out half way thru. The MRI is not a necessity, but more of an academic workup so I can discontinue the order. I will not change her management. With an abundance of caution,finished treating the tylenol level found in her as OD and the repeat levels of tylenol are all low once she finished the N- acetylcysteine. She is medically stable. The psych facility asked for EKG but patient has refused it. Unless I restrain her and sedate her, can't be done. I don't want to give haldol just to get an EKG. K is low but can be treated with oral K. CPK is now low enough to be clinically stable. Other than drinking water normally, no further treatment needed. I recommend detainment of patient because of paranoid delusions, suicidal statements and visual hallucinations. She is not voluntary. (2) Elevated liver enzymes Impression: which can be part of G6PD def. Clinically stable. No need for further treatment. No abd pain Was treated as APAP OD just in case. Check acute hepatitis panel, done but results pending Retic count and LDH done to evaluated hemolysis and mild. Limited US of liver negative. (3) Abnormal urinalysis Impression: one dose of Abx done and since negative culture, stopped. no symptoms of fever. WBC nml now. (4) Rhabdomyolysis Impression: with dehydration and acute kidney injury. was On 200 cc/hr NS, but I've stopped since clinically stable and medically cleared. CPK has come down to acceptable levels. Creat is now nml at 0.6 Stop IVF for CPK Qualifiers: Rhabdomyolysis type: non-traumatic Qualified Code(s): M62.82 - Rhabdomyolysis (5) Hypokalemia Impression: supplement po or IV but she keeps refusing.
[2017-11-11] MEDS: SODIUM CHLORIDE FLUSH 0.9% 10 ML SYRINGE IVP SCH ×4 (07:56→16:34)
--- NOTE | 2017-11-11 18:26 | PROVIDER PROGRESS NOTE ---
Assessment/Plan - Problem List (1) Psychiatric disorder Assessment/Plan: I reached out to [facility] for a psych transfer and they only accept their own ER psych patients. Social Work reached out to [facility] and got the same response. I spoke to the transfer center at ([facility]) and was told a Psych Intake Screener would call me before 3 pm. I never got a call and reached out to them again at 3:30 pm. At this point there was a typed report from the [facility] worker that stated that the pt needed "more medical testing"' therefore [facility] Hospitalist was contacted and reviewed the case with me extensively by phone and agreed with our W/U an stated that the pt would need a Psych bed at [facility] with Int Medicine and possibly a Neuro consult, for hyperbilirubinemia and poss atypical seizures. By that point, at 5:30 pm, there was no one in Psych to call me back, since they are open 8-3, except for emergencies. The reason for no call back the entire day from a Psych Screener, was that it was a "new person there today". I will call them tomorrow for a transfer to Psych service. (2) Catatonia Assessment/Plan: The patient is once again more still, staring off into space. RN did not report to me any hallucinations or paranoid thoughts described and the patient could not confirm that her suicidal ideation was entirely gone. (3) Suicidal ideations Assessment/Plan: Yesterday there were detailed plans voiced by patient. When asked if she wants to harm herself, she was vague. Continue 1:1 care and monitoring. (4) Rhabdomyolysis Assessment/Plan: CKs have decreased. The patient would not allow blood draw today, to recheck labs. (5) Hyperbilirubinemia Assessment/Plan: The bili has dropped from 7.0 to 4.2 with normal LFTs and LDH and abd ultrasound. I will order a fractionation, if the pt will allow blood draws tomorrow. Haptoglobin level is still pending to evaluate for Gilbert's disease. Hepatitis labs are also pending, but less likely with normal LFTs. (6) Anorexia Assessment/Plan: The patient continue to only take sips of cranberry juice and water, and does not verbalize to me why she is doing this and not eating. She is at risk for dehydration but yesterday's Na and BUN/creat were normal. Will recheck labs in am. - Current Meds Current Meds: Current Medications Generic Name Dose Route Start Last Admin Trade Name Rai PRN Reason Stop Dose Admin Sodium Chloride 10 ml 11/07/17 17:00 11/11/17 16:34 Normal Saline Flush 0.9% IVP Not Given 0100,0900,1700 HEMA Sodium Chloride 10 ml 11/07/17 14:19 11/07/17 16:00 Normal Saline Flush 0.9% IVP 20 ml PRN PRN Administration NEEDED PER PROVIDER ORDERS - Lab Result Fish Bone Diagrams: 11/10/17 08:20 11/10/17 08:15 Subjective - Subjective Patient Reports: Other (Cannot remember how she got here. Answers with a nod or simple "Yes" or "No" only. Cannot tell me her "thoughts" today.) Nursing Reports: Other (wlking in hallway, seems confused) Objective Vital Signs: Vital Signs - 24 hr 11/11/17 11/11/17 08:22 15:49 Temperature 37.2 C 36.3 C L Heart Rate [ 103 H 118 H Monitoring electrodes] Respiratory 17 18 Rate Blood Pressure 124/85 H 139/105 H [Right Brachial artery] O2 Saturation 99 98 Oxygen O2 Source Room air I&O (Last 24 Hrs): Intake and Output Totals x24h 11/09/17 11/10/17 11/11/17 23:59 23:59 23:59 Intake Total 1963.333 700 100 Output Total 200 175 Balance 1963.333 500 -75 General: No acute distress HEENT: Mucous membr. moist/pink, Other (Anicteric, no nystagumus) Neck: Supple, No JVD Neuro: Non Focal Cardiovascular: Regular rate, No murmurs Respiratory: No respiratory distress Abdomen: Soft Extremities: No edema - Results Results: Laboratory Results WBC 4.1 x10^3/uL (4.8-10.8) L 11/10/17 08:20 RBC 3.58 10^6/uL (4.20-5.40) L 11/10/17 08:20 Hgb 12.6 g/dL (12.0-16.0) 11/10/17 08:20 Hct 37.0 % (37.0-47.0) 11/10/17 08:20 MCV 103.2 fL (81.0-99.0) H 11/10/17 08:20 MCH 35.1 pg (27.0-31.0) H 11/10/17 08:20 MCHC 34.0 g/dL (32.0-36.0) 11/10/17 08:20 RDW 12.6 % (12.0-15.0) 11/10/17 08:20 Plt Count 254 10^3/uL (130-450) 11/10/17 08:20 MPV 7.7 fL (7.9-10.8) L 11/10/17 08:20 Reticulocyte % (Auto) 1.28 % (0.5-2.3) 11/09/17 10:02 Neut # 2.9 10^3/uL (1.5-6.6) 11/10/17 08:20 Lymph # 0.9 10^3/uL (1.5-3.5) L 11/10/17 08:20 [place] # 0.3 10^3/uL (0.0-1.0) 11/10/17 08:20 Eos # 0.0 10^3/uL (0.0-0.7) 11/10/17 08:20 Baso # 0.0 10^3/uL (0.0-0.1) 11/10/17 08:20 Absolute Nucleated RBC 0.00 x10^3/uL 11/10/17 08:20 Nucleated RBC % 0.0 /100WBC 11/10/17 08:20 Absolute Retic 0.045 10^6/uL (0.020-0.110) 11/09/17 10:02 PT 13.2 secs (9.9-12.6) H 11/07/17 12:20 INR 1.2 (0.8-1.2) 11/07/17 12:20 Sodium 135 mmol/L (135-145) 11/10/17 08:15 Potassium 3.4 mmol/L (3.5-5.0) L 11/10/17 08:15 Chloride 106 mmol/L (101-111) 11/10/17 08:15 Carbon Dioxide 16 mmol/L (21-32) L 11/10/17 08:15 Anion Gap 13.0 (6-13) 11/10/17 08:15 BUN < 5 mg/dL (6-20) L 11/10/17 08:15 Creatinine 0.7 mg/dL (0.4-1.0) 11/10/17 08:15 Estimated GFR (MDRD) 119 (>89) 11/10/17 08:15 Glucose 105 mg/dL (70-100) H 11/10/17 08:15 Lactic Acid 0.8 mmol/L (0.5-2.2) 11/07/17 23:50 Calcium 8.9 mg/dL (8.5-10.3) 11/10/17 08:15 Magnesium 2.0 mg/dL (1.7-2.8) 11/07/17 12:20 Total Bilirubin 4.2 mg/dL (0.2-1.0) H 11/10/17 08:15 AST 32 IU/L (10-42) 11/10/17 08:15 ALT 19 IU/L (10-60) 11/10/17 08:15 Alkaline Phosphatase 53 IU/L (42-121) 11/10/17 08:15 Lactate Dehydrogenase 219 IU/L (91-225) 11/09/17 10:02 Total Creatine Kinase 1250 IU/L (22-269) H* 11/10/17 08:20 Total Protein 7.9 g/dL (6.7-8.2) 11/10/17 08:15 Albumin 4.3 g/dL (3.2-5.5) 11/10/17 08:15 Globulin 3.6 g/dL (2.1-4.2) 11/10/17 08:15 Albumin/Globulin Ratio 1.2 (1.0-2.2) 11/10/17 08:15 Lipase 95 U/L (22-51) H 11/07/17 12:20 TSH 1.15 uIU/mL (0.34-5.60) 11/07/17 12:20 Urine Color DARK YELLOW 11/07/17 12:45 Urine Clarity CLEAR (CLEAR) 11/07/17 12:45 Urine pH 6.0 PH (5.0-7.5) 11/07/17 12:45 Ur Specific [place] >=1.030 (1.002-1.030) H 11/07/17 12:45 Urine Protein 30 mg/dL (NEGATIVE) H 11/07/17 12:45 Urine Glucose (UA) NEGATIVE mg/dL (NEGATIVE) 11/07/17 12:45 Urine Ketones 15 mg/dL (NEGATIVE) H 11/07/17 12:45 Urine Occult Blood NEGATIVE (NEGATIVE) 11/07/17 12:45 Urine Nitrite NEGATIVE (NEGATIVE) 11/07/17 12:45 Urine Bilirubin NEGATIVE (NEGATIVE) 11/07/17 12:45 Urine Urobilinogen 0.2 (NORMAL) E.U./dL (NORMAL) 11/07/17 12:45 Ur Leukocyte Esterase NEGATIVE (NEGATIVE) 11/07/17 12:45 Urine RBC 0-5 /HPF (0-5) 11/07/17 12:45 Urine WBC 0-3 /HPF (0-5) 11/07/17 12:45 Ur Squamous Epith Cells FEW Squamous (<= Few) 11/07/17 12:45 Urine Bacteria Moderate /HPF (None Seen) H 11/07/17 12:45 Urine Mucus Few Strands 11/07/17 12:45 Ur Microscopic Review INDICATED 11/07/17 12:45 Urine Culture Comments INDICATED 11/07/17 12:45 Urine HCG, Qual NEGATIVE 11/07/17 12:45 CSF Color COLORLESS (COLORLESS) 11/07/17 14:05 CSF Clarity CLEAR (CLEAR) 11/07/17 14:05 Xanthrochromic ABSENT (ABSENT) 11/07/17 14:05 CSF WBC 1 /mm^3 (0-5) 11/07/17 14:05 CSF RBC 32 /mm^3 (0-1) H 11/07/17 14:05 CSF Cell Count Tube # CSF TUBE# 3 11/07/17 14:05 CSF Glucose 65 mg/dL (45-70) 11/07/17 14:05 CSF Total Protein 26 mg/dL (15-45) 11/07/17 14:05 Salicylates < 6.0 mg/dL 11/07/17 12:20 Urine Opiates Screen NEGATIVE (NEGATIVE) 11/07/17 12:45 Ur Oxycodone Screen NEGATIVE (NEGATIVE) 11/07/17 12:45 Urine Methadone Screen NEGATIVE (NEGATIVE) 11/07/17 12:45 Ur Propoxyphene Screen NEGATIVE (NEGATIVE) 11/07/17 12:45 Acetaminophen < 10 ug/mL (10-30) L 11/08/17 05:10 Ur Barbiturates Screen NEGATIVE (NEGATIVE) 11/07/17 12:45 Ur Tricyclics Screen NEGATIVE (NEGATIVE) 11/07/17 12:45 Ur Phencyclidine Scrn NEGATIVE (NEGATIVE) 11/07/17 12:45 Ur Amphetamine Screen NEGATIVE (NEGATIVE) 11/07/17 12:45 U Methamphetamines Scrn NEGATIVE (NEGATIVE) 11/07/17 12:45 U Benzodiazepines Scrn NEGATIVE (NEGATIVE) 11/07/17 12:45 Urine Cocaine Screen NEGATIVE (NEGATIVE) 11/07/17 12:45 U Cannabinoids Screen NEGATIVE (NEGATIVE) 11/07/17 12:45 Ethyl Alcohol < 5.0 mg/dL 11/07/17 12:20 HSV I DNA Quant (PCR) NOT DETECTED 11/07/17 14:05 HSV II DNA Quant (PCR) NOT DETECTED 11/07/17 14:05 HSV (PCR) Source NOT GIVEN 11/07/17 14:05
[2017-11-12] MEDS: SODIUM CHLORIDE FLUSH 0.9% 10 ML SYRINGE IVP SCH ×4 (05:26→22:13)
--- NOTE | 2017-11-12 16:36 | PROVIDER PROGRESS NOTE ---
Assessment/Plan - Problem List (1) Psychiatric disorder Assessment/Plan: I had a long talk with her, in presence of her RN, Oc. The last thing she remembers was 1 week ago, being in her apartment. Then she remembers pieces of the next week's events: being in [place] at a friend's house, being in an ambulance, meeting a male then female doctor, meeting a psych worker, eating today, sitting and doing a puzzle today. She does remember that she was seeing and hearing things that were not there. She is wanting to be evaluated and treated for the psych disorder and wants to stay an inpatient. I will reach out to [place] [facility] [employer] April). (2) Catatonia Assessment/Plan: Resolved. (3) Suicidal ideations Assessment/Plan: Pt says vehemently that she does not want to harm herself. She does remember wanting to kill herself and cannot remember why. She does want to be hospitalized to evaluate and treat her emotional state, she said. [facility] was contacted for a transfer to inpatient psych and they are on divert and housing psych Pts in their ER. (4) Rhabdomyolysis Assessment/Plan: Pt will allow a blood draw today to check for renal function and dehydration and CK level. (5) Hyperbilirubinemia Assessment/Plan: Pt will allow a blood draw today to check total and fractionated bili. Thus far, obstructive cause has been ruled out. (6) Anorexia Assessment/Plan: The Pt had an appetite and drank liquids, juice and ate half a tuna sandwich. Will check CMP today. (7) Intermittent palpitations Assessment/Plan: Will get labs to evaluate for dehydration, TFTs, anemia, TN. - Current Meds Current Meds: Current Medications Generic Name Dose Route Start Last Admin Trade Name Freq PRN Reason Stop Dose Admin Sodium Chloride 10 ml 11/07/17 17:00 11/12/17 11:55 Normal Saline Flush 0.9% IVP Not Given 0100,0900,1700 HEMA Sodium Chloride 10 ml 11/07/17 14:19 11/07/17 16:00 Normal Saline Flush 0.9% IVP 20 ml PRN PRN Administration NEEDED PER PROVIDER ORDERS - Lab Result Fish Bone Diagrams: 11/10/17 08:20 11/10/17 08:15 - Additional Planning My Orders: My Active Orders 11/12/17 05:00 CBC - COMP BLD CT W/AUTO DIFF [HEME] DAILYLAB CMP [COMPREHENSIVE METABOLIC PANEL] [CHEM] DAILYLAB Subjective - Subjective Patient Reports: Feeling Better, Other (Pt interacts and smiles when speaking, sentences are longer than 2 words, unlike yesterday. She complains of "palpitations" like "racing".) Nursing Reports: No Complaints Objective Vital Signs: Vital Signs - 24 hr 11/12/17 10:00 Temperature 36.5 C Heart Rate [ 67 Monitoring electrodes] Respiratory 16 Rate Blood Pressure 112/54 L [Left Brachial artery] O2 Saturation 99 Oxygen O2 Source Room air I&O (Last 24 Hrs): Intake and Output Totals x24h 11/10/17 11/11/17 11/12/17 23:59 23:59 23:59 Intake Total 700 100 740 Output Total 200 175 Balance 500 -75 740 General: Alert, Oriented x3 HEENT: Mucous membr. moist/pink Neck: Supple Neuro: Non Focal Cardiovascular: Regular rate Respiratory: No respiratory distress Extremities: No edema - Results Results: Laboratory Results WBC 4.1 x10^3/uL (4.8-10.8) L 11/10/17 08:20 RBC 3.58 10^6/uL (4.20-5.40) L 11/10/17 08:20 Hgb 12.6 g/dL (12.0-16.0) 11/10/17 08:20 Hct 37.0 % (37.0-47.0) 11/10/17 08:20 MCV 103.2 fL (81.0-99.0) H 11/10/17 08:20 MCH 35.1 pg (27.0-31.0) H 11/10/17 08:20 MCHC 34.0 g/dL (32.0-36.0) 11/10/17 08:20 RDW 12.6 % (12.0-15.0) 11/10/17 08:20 Plt Count 254 10^3/uL (130-450) 11/10/17 08:20 MPV 7.7 fL (7.9-10.8) L 11/10/17 08:20 Reticulocyte % (Auto) 1.28 % (0.5-2.3) 11/09/17 10:02 Neut # 2.9 10^3/uL (1.5-6.6) 11/10/17 08:20 Lymph # 0.9 10^3/uL (1.5-3.5) L 11/10/17 08:20 Ralls # 0.3 10^3/uL (0.0-1.0) 11/10/17 08:20 Eos # 0.0 10^3/uL (0.0-0.7) 11/10/17 08:20 Baso # 0.0 10^3/uL (0.0-0.1) 11/10/17 08:20 Absolute Nucleated RBC 0.00 x10^3/uL 11/10/17 08:20 Nucleated RBC % 0.0 /100WBC 11/10/17 08:20 Absolute Retic 0.045 10^6/uL (0.020-0.110) 11/09/17 10:02 PT 13.2 secs (9.9-12.6) H 11/07/17 12:20 INR 1.2 (0.8-1.2) 11/07/17 12:20 Sodium 135 mmol/L (135-145) 11/10/17 08:15 Potassium 3.4 mmol/L (3.5-5.0) L 11/10/17 08:15 Chloride 106 mmol/L (101-111) 11/10/17 08:15 Carbon Dioxide 16 mmol/L (21-32) L 11/10/17 08:15 Anion Gap 13.0 (6-13) 11/10/17 08:15 BUN < 5 mg/dL (6-20) L 11/10/17 08:15 Creatinine 0.7 mg/dL (0.4-1.0) 11/10/17 08:15 Estimated GFR (MDRD) 119 (>89) 11/10/17 08:15 Glucose 105 mg/dL (70-100) H 11/10/17 08:15 Lactic Acid 0.8 mmol/L (0.5-2.2) 11/07/17 23:50 Calcium 8.9 mg/dL (8.5-10.3) 11/10/17 08:15 Magnesium 2.0 mg/dL (1.7-2.8) 11/07/17 12:20 Total Bilirubin 4.2 mg/dL (0.2-1.0) H 11/10/17 08:15 AST 32 IU/L (10-42) 11/10/17 08:15 ALT 19 IU/L (10-60) 11/10/17 08:15 Alkaline Phosphatase 53 IU/L (42-121) 11/10/17 08:15 Lactate Dehydrogenase 219 IU/L (91-225) 11/09/17 10:02 Total Creatine Kinase 1250 IU/L (22-269) H* 11/10/17 08:20 Total Protein 7.9 g/dL (6.7-8.2) 11/10/17 08:15 Albumin 4.3 g/dL (3.2-5.5) 11/10/17 08:15 Globulin 3.6 g/dL (2.1-4.2) 11/10/17 08:15 Albumin/Globulin Ratio 1.2 (1.0-2.2) 11/10/17 08:15 Lipase 95 U/L (22-51) H 11/07/17 12:20 TSH 1.15 uIU/mL (0.34-5.60) 11/07/17 12:20 Urine Color DARK YELLOW 11/07/17 12:45 Urine Clarity CLEAR (CLEAR) 11/07/17 12:45 Urine pH 6.0 PH (5.0-7.5) 11/07/17 12:45 Ur Specific [place] >=1.030 (1.002-1.030) H 11/07/17 12:45 Urine Protein 30 mg/dL (NEGATIVE) H 11/07/17 12:45 Urine Glucose (UA) NEGATIVE mg/dL (NEGATIVE) 11/07/17 12:45 Urine Ketones 15 mg/dL (NEGATIVE) H 11/07/17 12:45 Urine Occult Blood NEGATIVE (NEGATIVE) 11/07/17 12:45 Urine Nitrite NEGATIVE (NEGATIVE) 11/07/17 12:45 Urine Bilirubin NEGATIVE (NEGATIVE) 11/07/17 12:45 Urine Urobilinogen 0.2 (NORMAL) E.U./dL (NORMAL) 11/07/17 12:45 Ur Leukocyte Esterase NEGATIVE (NEGATIVE) 11/07/17 12:45 Urine RBC 0-5 /HPF (0-5) 11/07/17 12:45 Urine WBC 0-3 /HPF (0-5) 11/07/17 12:45 Ur Squamous Epith Cells FEW Squamous (<= Few) 11/07/17 12:45 Urine Bacteria Moderate /HPF (None Seen) H 11/07/17 12:45 Urine Mucus Few Strands 11/07/17 12:45 Ur Microscopic Review INDICATED 11/07/17 12:45 Urine Culture Comments INDICATED 11/07/17 12:45 Urine HCG, Qual NEGATIVE 11/07/17 12:45 CSF Color COLORLESS (COLORLESS) 11/07/17 14:05 CSF Clarity CLEAR (CLEAR) 11/07/17 14:05 Xanthrochromic ABSENT (ABSENT) 11/07/17 14:05 CSF WBC 1 /mm^3 (0-5) 11/07/17 14:05 CSF RBC 32 /mm^3 (0-1) H 11/07/17 14:05 CSF Cell Count Tube # CSF TUBE# 3 11/07/17 14:05 CSF Glucose 65 mg/dL (45-70) 11/07/17 14:05 CSF Total Protein 26 mg/dL (15-45) 11/07/17 14:05 Salicylates < 6.0 mg/dL 11/07/17 12:20 Urine Opiates Screen NEGATIVE (NEGATIVE) 11/07/17 12:45 Ur Oxycodone Screen NEGATIVE (NEGATIVE) 11/07/17 12:45 Urine Methadone Screen NEGATIVE (NEGATIVE) 11/07/17 12:45 Ur Propoxyphene Screen NEGATIVE (NEGATIVE) 11/07/17 12:45 Acetaminophen < 10 ug/mL (10-30) L 11/08/17 05:10 Ur Barbiturates Screen NEGATIVE (NEGATIVE) 11/07/17 12:45 Ur Tricyclics Screen NEGATIVE (NEGATIVE) 11/07/17 12:45 Ur Phencyclidine Scrn NEGATIVE (NEGATIVE) 11/07/17 12:45 Ur Amphetamine Screen NEGATIVE (NEGATIVE) 11/07/17 12:45 U Methamphetamines Scrn NEGATIVE (NEGATIVE) 11/07/17 12:45 U Benzodiazepines Scrn NEGATIVE (NEGATIVE) 11/07/17 12:45 Urine Cocaine Screen NEGATIVE (NEGATIVE) 11/07/17 12:45 U Cannabinoids Screen NEGATIVE (NEGATIVE) 11/07/17 12:45 Ethyl Alcohol < 5.0 mg/dL 11/07/17 12:20 HSV I DNA Quant (PCR) NOT DETECTED 11/07/17 14:05 HSV II DNA Quant (PCR) NOT DETECTED 11/07/17 14:05 HSV (PCR) Source NOT GIVEN 11/07/17 14:05
[2017-11-12 17:17] LABS: BASOPHILS % (AUTO) 0.6 %; EOSINOPHILS % (AUTO) 0.2 %; HGB - HEMOGLOBIN 12.7 g/dL (12.0-16.0); LYMPHOCYTES # (AUTO) 1.2 10^3/uL (1.5-3.5); LYMPHOCYTES % (AUTO) 28.3 %; MEAN CORPUSCULAR HEMOGLOBIN 33.7 pg (27.0-31.0); MEAN CORPUSCULAR HGB CONC 32.5 g/dL (32.0-36.0); MEAN CORPUSCULAR VOLUME 103.6 fL (81.0-99.0); MEAN PLATELET VOLUME 7.7 fL (7.9-10.8); MONOCYTES # (AUTO) 0.3 10^3/uL (0.0-1.0); MONOCYTES % (AUTO) 8.1 %; NEUTROPHILS # (AUTO) 2.6 10^3/uL (1.5-6.6); NEUTROPHILS % (AUTO) 62.8 %; PLT - PLATELET COUNT 269 10^3/uL (130-450); RED BLOOD COUNT 3.78 10^6/uL (4.20-5.40); RED CELL DISTRIBUTION WIDTH 12.8 % (12.0-15.0); WHITE BLOOD COUNT 4.1 x10^3/uL (4.8-10.8)
[2017-11-12 17:37] LABS: ALBUMIN 4.2 g/dL (3.2-5.5); ALBUMIN/GLOBULIN RATIO 1.2 (1.0-2.2); BILIRUBIN,TOTAL 2.2 mg/dL (0.2-1.0); CALCIUM 9.4 mg/dL (8.5-10.3); CREATININE 0.9 mg/dL (0.4-1.0); MAGNESIUM 1.6 mg/dL (1.7-2.8); TOTAL PROTEIN 7.6 g/dL (6.7-8.2)
[2017-11-13] MEDS ORDERED: MAGNESIUM OXIDE 400 MG TABLET PO SCH (13:00)
[2017-11-13] MEDS: SODIUM CHLORIDE FLUSH 0.9% 10 ML SYRINGE IVP SCH ×2 (16:23→19:45)
--- NOTE | 2017-11-13 18:05 | PROVIDER PROGRESS NOTE ---
Assessment/Plan - Problem List (1) Psychiatric disorder Assessment/Plan: The patient continues to exhibit alternating emotional states daily, since I have interacted with her (the past 3 days). We are awaiting transfer to a center where she can have psychiatry management and medical consultants available. At present, she is medically stable, and there is no single pill to treat someone with G6PD deficiency. I have not ordered an anxiolytic agents or antipsycotic medication, in order for the psychiatry evaluation to be unimpeded. She remains with 1:1 observation 13/01, since she was suicidal several days ago. (2) Catatonia Assessment/Plan: Pt is once again more emotionally distant, has bradykinesis. She needs psych management in a med-psych unit. (3) Suicidal ideations Assessment/Plan: She could not tell me today if she is or is not suicidal. We are awaiting another evaluation by DCR regarding potentially detaining her and where to transfer her to. (4) Rhabdomyolysis Assessment/Plan: Yesterday's blood results showed further improvement in serum CK level. Continue to monitor BMP and labs when Pt will allow. (5) Hyperbilirubinemia Assessment/Plan: Yesterday ther was further improvement in serum bili. Fractionated biliruben blood test to be obtained. (6) Anorexia Assessment/Plan: Pt is again anorexic but clinically not dehydrated and no lightheadedness. Yesterday's blood tests showed adequate hydration and electrolyte levels. Monitor labs, when Pt will allow. (7) Intermittent palpitations Assessment/Plan: No further complaints from patient. Telemetry has been stable. - Current Meds Current Meds: Current Medications Generic Name Dose Route Start Last Admin Trade Name Freq PRN Reason Stop Dose Admin Magnesium Oxide 400 mg 11/13/17 13:00 11/13/17 16:22 Mag Ox PO 400 mg BID HEMA Administration Sodium Chloride 10 ml 11/07/17 17:00 11/13/17 16:23 Normal Saline Flush 0.9% IVP Not Given 0100,0900,1700 HEMA Sodium Chloride 10 ml 11/07/17 14:19 11/07/17 16:00 Normal Saline Flush 0.9% IVP 20 ml PRN PRN Administration NEEDED PER PROVIDER ORDERS - Lab Result Fish Bone Diagrams: 11/12/17 17:04 11/12/17 17:04 - Additional Planning My Orders: My Active Orders 11/13/17 13:00 Magnesium Oxide [Mag Ox] 400 mg PO BID 11/13/17 15:20 BILE ACIDS,FRACT AND TOTAL [REFLAB] Routine Subjective - Subjective Patient Reports: No Complaints, Other (Pt stoic, does not complete sentences. She again did not eat solid food for breakfast or lunch and only sipped on cranberry juice.) Objective Vital Signs: Vital Signs - 24 hr 11/12/17 11/13/17 23:35 12:24 Temperature 36.8 C 37.3 C Heart Rate [ 90 109 H Monitoring electrodes] Respiratory 16 20 Rate Blood Pressure 122/90 H [Left Brachial artery] Blood Pressure 108/71 [Right Brachial artery] O2 Saturation 99 Oxygen O2 Source Room air I&O (Last 24 Hrs): Intake and Output Totals x24h 11/11/17 11/12/17 11/13/17 23:59 23:59 23:59 Intake Total 100 1426 200 Output Total 175 Balance -75 1426 200 General: Alert, Other (Flat affect. Does not keep eye contact.) HEENT: Mucous membr. moist/pink Neck: Supple Cardiovascular: Regular rate, No murmurs Respiratory: No respiratory distress, Breath sounds nml Abdomen: Soft Extremities: No edema - Results Results: Laboratory Results WBC 4.1 x10^3/uL (4.8-10.8) L 11/12/17 17:04 RBC 3.78 10^6/uL (4.20-5.40) L 11/12/17 17:04 Hgb 12.7 g/dL (12.0-16.0) 11/12/17 17:04 Hct 39.1 % (37.0-47.0) 11/12/17 17:04 MCV 103.6 fL (81.0-99.0) H 11/12/17 17:04 MCH 33.7 pg (27.0-31.0) H 11/12/17 17:04 MCHC 32.5 g/dL (32.0-36.0) 11/12/17 17:04 RDW 12.8 % (12.0-15.0) 11/12/17 17:04 Plt Count 269 10^3/uL (130-450) 11/12/17 17:04 MPV 7.7 fL (7.9-10.8) L 11/12/17 17:04 Reticulocyte % (Auto) 1.28 % (0.5-2.3) 11/09/17 10:02 Neut # 2.6 10^3/uL (1.5-6.6) 11/12/17 17:04 Lymph # 1.2 10^3/uL (1.5-3.5) L 11/12/17 17:04 [place] # 0.3 10^3/uL (0.0-1.0) 11/12/17 17:04 Eos # 0.0 10^3/uL (0.0-0.7) 11/12/17 17:04 Baso # 0.0 10^3/uL (0.0-0.1) 11/12/17 17:04 Absolute Nucleated RBC 0.01 x10^3/uL 11/12/17 17:04 Nucleated RBC % 0.1 /100WBC 11/12/17 17:04 Absolute Retic 0.045 10^6/uL (0.020-0.110) 11/09/17 10:02 Haptoglobin 76 mg/dL (43-212) 11/09/17 10:22 PT 13.2 secs (9.9-12.6) H 11/07/17 12:20 INR 1.2 (0.8-1.2) 11/07/17 12:20 Sodium 136 mmol/L (135-145) 11/12/17 17:04 Potassium 3.6 mmol/L (3.5-5.0) 11/12/17 17:04 Chloride 101 mmol/L (101-111) 11/12/17 17:04 Carbon Dioxide 26 mmol/L (21-32) 11/12/17 17:04 Anion Gap 9.0 (6-13) 11/12/17 17:04 BUN 12 mg/dL (6-20) 11/12/17 17:04 Creatinine 0.9 mg/dL (0.4-1.0) 11/12/17 17:04 Estimated GFR (MDRD) 89 (>89) 11/12/17 17:04 Glucose 92 mg/dL (70-100) 11/12/17 17:04 Lactic Acid 0.8 mmol/L (0.5-2.2) 11/07/17 23:50 Calcium 9.4 mg/dL (8.5-10.3) 11/12/17 17:04 Magnesium 1.6 mg/dL (1.7-2.8) L 11/12/17 17:04 Total Bilirubin 2.2 mg/dL (0.2-1.0) H 11/12/17 17:04 AST 28 IU/L (10-42) 11/12/17 17:04 ALT 20 IU/L (10-60) 11/12/17 17:04 Alkaline Phosphatase 49 IU/L (42-121) 11/12/17 17:04 Lactate Dehydrogenase 219 IU/L (91-225) 11/09/17 10:02 Total Creatine Kinase 572 IU/L (22-269) H 11/12/17 17:04 Troponin I < 0.04 ng/mL (<0.49) 11/12/17 17:04 Total Protein 7.6 g/dL (6.7-8.2) 11/12/17 17:04 Albumin 4.2 g/dL (3.2-5.5) 11/12/17 17:04 Globulin 3.4 g/dL (2.1-4.2) 11/12/17 17:04 Albumin/Globulin Ratio 1.2 (1.0-2.2) 11/12/17 17:04 Lipase 95 U/L (22-51) H 11/07/17 12:20 TSH 1.15 uIU/mL (0.34-5.60) 11/07/17 12:20 Free T4 0.81 ng/dL (0.58-1.64) 11/12/17 17:04 Urine Color DARK YELLOW 11/07/17 12:45 Urine Clarity CLEAR (CLEAR) 11/07/17 12:45 Urine pH 6.0 PH (5.0-7.5) 11/07/17 12:45 Ur Specific [place] >=1.030 (1.002-1.030) H 11/07/17 12:45 Urine Protein 30 mg/dL (NEGATIVE) H 11/07/17 12:45 Urine Glucose (UA) NEGATIVE mg/dL (NEGATIVE) 11/07/17 12:45 Urine Ketones 15 mg/dL (NEGATIVE) H 11/07/17 12:45 Urine Occult Blood NEGATIVE (NEGATIVE) 11/07/17 12:45 Urine Nitrite NEGATIVE (NEGATIVE) 11/07/17 12:45 Urine Bilirubin NEGATIVE (NEGATIVE) 11/07/17 12:45 Urine Urobilinogen 0.2 (NORMAL) E.U./dL (NORMAL) 11/07/17 12:45 Ur Leukocyte Esterase NEGATIVE (NEGATIVE) 11/07/17 12:45 Urine RBC 0-5 /HPF (0-5) 11/07/17 12:45 Urine WBC 0-3 /HPF (0-5) 11/07/17 12:45 Ur Squamous Epith Cells FEW Squamous (<= Few) 11/07/17 12:45 Urine Bacteria Moderate /HPF (None Seen) H 11/07/17 12:45 Urine Mucus Few Strands 11/07/17 12:45 Ur Microscopic Review INDICATED 11/07/17 12:45 Urine Culture Comments INDICATED 11/07/17 12:45 Urine HCG, Qual NEGATIVE 11/07/17 12:45 CSF Color COLORLESS (COLORLESS) 11/07/17 14:05 CSF Clarity CLEAR (CLEAR) 11/07/17 14:05 Xanthrochromic ABSENT (ABSENT) 11/07/17 14:05 CSF WBC 1 /mm^3 (0-5) 11/07/17 14:05 CSF RBC 32 /mm^3 (0-1) H 11/07/17 14:05 CSF Cell Count Tube # CSF TUBE# 3 11/07/17 14:05 CSF Glucose 65 mg/dL (45-70) 11/07/17 14:05 CSF Total Protein 26 mg/dL (15-45) 11/07/17 14:05 Salicylates < 6.0 mg/dL 11/07/17 12:20 Urine Opiates Screen NEGATIVE (NEGATIVE) 11/07/17 12:45 Ur Oxycodone Screen NEGATIVE (NEGATIVE) 11/07/17 12:45 Urine Methadone Screen NEGATIVE (NEGATIVE) 11/07/17 12:45 Ur Propoxyphene Screen NEGATIVE (NEGATIVE) 11/07/17 12:45 Acetaminophen < 10 ug/mL (10-30) L 11/08/17 05:10 Ur Barbiturates Screen NEGATIVE (NEGATIVE) 11/07/17 12:45 Ur Tricyclics Screen NEGATIVE (NEGATIVE) 11/07/17 12:45 Ur Phencyclidine Scrn NEGATIVE (NEGATIVE) 11/07/17 12:45 Ur Amphetamine Screen NEGATIVE (NEGATIVE) 11/07/17 12:45 U Methamphetamines Scrn NEGATIVE (NEGATIVE) 11/07/17 12:45 U Benzodiazepines Scrn NEGATIVE (NEGATIVE) 11/07/17 12:45 Urine Cocaine Screen NEGATIVE (NEGATIVE) 11/07/17 12:45 U Cannabinoids Screen NEGATIVE (NEGATIVE) 11/07/17 12:45 Ethyl Alcohol < 5.0 mg/dL 11/07/17 12:20 HSV I DNA Quant (PCR) NOT DETECTED 11/07/17 14:05 HSV II DNA Quant (PCR) NOT DETECTED 11/07/17 14:05 HSV (PCR) Source NOT GIVEN 11/07/17 14:05
[2017-11-14] MEDS ORDERED: HALOPERIDOL 5 MG/ML VIAL IM PRN
[2017-11-14 01:58] VITALS: BP 109/78
--- NOTE | 2017-11-14 08:27 | Discharge Plan ---
Discharge Plan Disposition: 02 Transfer Acute Care Hosp Condition: Serious Diet: Regular Activity Restrictions: Activity as Tolerated No Smoking: If you smoke, Please STOP! Call for help.
[2017-11-14 10:42] LABS: HEPATITIS A IGM NON-REACTIVE (NON-REACTIVE); HEPATITIS B CORE ANTIBODY IGM NON-REACTIVE (NON-REACTIVE); HEPATITIS B SURFACE ANTIGEN NON-REACTIVE (NON-REACTIVE); HEPATITIS C ANTIBODY NON-REACTIVE (NON-REACTIVE)
--- NOTE | 2017-11-15 11:12 | DISCHARGE SUMMARY ---
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 She was nearly nonverbal, catatonic with a posture of holding her arms in front of her and staring straight forward. The providers were able to contact her sister who reported that a video chat with the patient 2 days previously was significant for her being not quite right on the video. There was no history of drug abuse or any substance abuse on this patient. The patient was admitted for altered mental status, catatonia and evidence of rhabdomyolysis by lab testing. HOSPITAL COURSE AND DISCHARGE DIAGNOSES 1. Psychiatric disorder with delusions and hallucinations. The patient reported seeing and hearing demons, had hallucinations of various objects and would fluctuate between being bradykinetic and again nearly catatonic to being anxious, pacing the room and also confused, standing up to urinate on herself and not being aware of doing this. DCR came to evaluate the patient and stated that she was not transferable for psychiatric care because of underlying medical conditions needing to be evaluated and managed. After stabilization of her rhabdomyolysis, improvement of hyperbilirubinemia and hypomagnesemia, DCR again was requested to reevaluate for transfer to an inpatient psychiatric facility. The patient was deemed detainable; DCR spoke to me personally (Libra was the DCR). I reached out to the various inpatient med-psych units and she was accepted in transfer at [facility] in [place] by BASSAM Lauren. The patient was transferred by ambulance to that facility. Early in the admission, she was evaluated for reversible causes of altered mental status: she underwent a head CT that showed no abnormalities, brain MRI that was also unremarkable. She had a spinal tap that showed no evidence of infection and there was no growth on cultures of the CSF. 2. Anorexia. The patient reported that she had no appetite and indeed had very poor p.o. intake of solids and only had sips of cranberry juice for hydration. Initially , she did have IV fluids for hydration. 3. Catatonia. Her initial presentation was in a catatonic state with arms stretched out in front of her, and in that position for hours. There were intermittent times where after being more active and moving, she again returned to being bradykinetic, staring at a wall straight ahead of her for hours at a time. 4. Suicidal ideation. In the middle of the hospitalization, she verbalized to her caregivers that she did have a plan for committing suicide using the hospital silverware as well as any writing utensils. She was placed on one-to-one observation, 13/01. Subsequently , she had different responses when asked if she would harm herself; however, some were when she was less verbal and incomplete responses. 5. Rhabdomyolysis. This was felt to be secondary to her catatonic condition, holding her arms in that position for hours on initial presentation. The first CPK in the emergency room was 3677 and with hydration and followup labs, it decreased to 1754, 1250, and then she stopped allowing blood draws except for one other time, just 2 days before transfer, the CPK serum level was 572. The patient had adequate urine output and her BUN and creatinine were normal throughout the hospital stay, BUN 15, creatinine 1.3 on admission, improved to BUN of 7, creatinine 0.6 the following day. 6. G6PD deficiency. Patient's records indicate she has this diagnosis. 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 She has never required specific treatment for this. 7. Hyperbilirubinemia. This was felt to be secondary to her volume depletion and G6PD deficiency. The first bilirubin was 2.9, which worsened to 7.0 two days later, improved to 2.2 on the last blood draw, 2 days before transfer. No other causes for hyperbilirubinemia such as obstructive disease or intrahepatic dysfunction were found. The patient had imaging studies with an abdomen ultrasound that showed mild increased liver echogenicity, no stones or bile duct dilatation. 8. Palpitations. During her mid hospitalization, when she had some periods of time with fairly normal communication, she reported there were mild racing feelings. She was put on telemetry following this and found to have no significant dysrhythmias. She also allowed blood draws at this point and was found to have hypomagnesemia with a magnesium level of 1.6 for which she received magnesium oxide 400 mg p.o. b.i.d. for 1 day. Troponin level at this blood draw was normal at <0.04. A free T4 was also normal at 0.81 and TSH was normal on admission at 1.15. 9. Hypomagnesemia. This is likely due to her poor dietary intake and was replaced as described above. LABORATORY AND IMAGING: Reviewed and summarized above. ALLERGIES: ASCORBIC ACID, LEGUMES, PEANUT BUTTER, QUININE, SOY, AND SOY BEANS. MEDICATIONS AT THE TIME OF TRANSFER: None. PHYSICAL EXAMINATION AT THE TIME OF TRANSFER: GENERAL: No acute distress. VITAL SIGNS: Blood pressure 109/78, pulse of 80 in sinus rhythm, afebrile, room air saturation 99%. HEENT: Unremarkable. NECK: Without JVD or carotid bruits. CHEST: Clear. HEART: Sounds normal. No audible murmur or click. ABDOMEN: Soft with positive bowel sounds. EXTREMITIES: Without clubbing, cyanosis or edema. NEUROLOGIC: Intact except for her abnormal personality. CODE STATUS: FULL CODE. FOLLOWUP: This will be determined after her hospital stay at [facility]. Time required to complete this entire discharge, dictation, review of chart: 50 minutes cc: Carlton Garcia M.D. TD: 11/14/2017 17:06 [email or web address]
[2017-11-17 15:11] LABS: CHENODEOXYCHOLIC ACID 0.6 umol/L (< OR = 3.1); CHOLIC ACID <0.5 umol/L (< OR = 1.8); DEOXYCHOLIC ACID <0.5 umol/L (< OR = 2.4); TOTAL BILE ACIDS <1.5 umol/L (< OR = 6.8)
== END 2017-11-14 15:25 | disposition short-term general hospital (02) | DRG 885 ==
LOC: EDBD → MERGE 12:05 → ED 12:05 → ICU 14:19 → MS3 11-10 10:10
PROVIDERS: ADMIT Specialist; ATTEND Internal Medicine
DX: F29 Unspecified psychosis not due to a substance or known physiological condition (principal); Z68.1 Body mass index [BMI] 19.9 or less, adult; R45.851 Suicidal ideations; M62.82 Rhabdomyolysis; R17 Unspecified jaundice; N17.9 Acute kidney failure, unspecified; R44.0 Auditory hallucinations; R44.1 Visual hallucinations; F22 Delusional disorders; R25.8 Other abnormal involuntary movements; D55.0 Anemia due to glucose-6-phosphate dehydrogenase [G6PD] deficiency; M54.10 Radiculopathy, site unspecified; R63.0 Anorexia; R00.2 Palpitations; R00.0 Tachycardia, unspecified; E86.0 Dehydration; E83.42 Hypomagnesemia; E87.6 Hypokalemia; R78.89 Finding of other specified substances, not normally found in blood; D50.9 Iron deficiency anemia, unspecified; E55.9 Vitamin D deficiency, unspecified; H90.3 Sensorineural hearing loss, bilateral; Z81.8 Family history of other mental and behavioral disorders; Z78.1 Physical restraint status
CPT/HCPCS: 36415; 51701; 62270; 70450; 70551; 76705; 80048; 80053; 80074; 80306; 80307; 80320; 80329; 81001; 81003; 81025; 82542; 82550; 82945; 83010; 83605; 83615; 83690; 83735; 84157; 84439; 84443; 84484; 85025; 85044; 85610; 86850; 86900; 86901; 86920; 87070; 87086; 87150; 87205; 87529; 89051; 93005; 96361; 96374; 96375; 96376; 99283; 99284; 99291

== ENCOUNTER 2018-05-07 15:36 | Outpatient (CLI) | payer OTHER ==
[2018-05-07] MEDS ORDERED: GADOBUTROL 7.5 MMOL/7.5 ML VIAL ONE (15:58)
[2018-05-07] MEDS ORDERED: GADOBUTROL 7.5 MMOL/7.5 ML VIAL IVP ONE (16:36)
--- NOTE | 2018-05-08 13:47 | MRI Report ---
Reason: ABNORMAL KULKARNI,LT SIDED BODY WITH SENSORY CHANGES Procedure Date: 05/07/2018 Accession Number: [id number] / [id number] Procedure: MRI - Brain W/WO CPT Code: FULL RESULT: MRI BRAIN WITHOUT AND WITH CONTRAST INDICATION: 32-year-old female. Headaches and left-sided numbness. Please assess. TECHNIQUE: 1. Sagittal T1 3D MP RAGE and T2 FLAIR. 2. Axial T1 3D MP RAGE, FLAIR, T2 and DWI. 3. 5.5 cc IV Gadavist. T1 3D MP RAGE and T1 spin echo axial. COMPARISON: 11/10/2017 FINDINGS: Ventricular size is normal and stable. A roughly 3.5 mm diameter T2 hyperintense focus is again demonstrated in the deep white matter, anterior left frontal lobe, lateral to the frontal horn of the left lateral ventricle, unchanged. Signal intensity of cortex and white matter is otherwise normal. No new lesion is identified. Flow voids are seen in the main intracranial arteries. No abnormal diffusion restriction is demonstrated. A T2* GRE sequence has not been performed. However, there is no evidence of acute or chronic hemorrhage on the sequences provided. No enhancing space-occupying mass lesion is demonstrated. No pathologic meningeal or cranial nerve enhancement is identified. There appears to be normal intravascular contrast enhancement in the dural venous sinuses and deep venous structures. This effectively excludes the possibility of venous thrombosis. 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 This represents the known anatomical variant. Limited evaluation of the pituitary reveals no gross pathology. The suprasellar structures have a normal appearance. Limited assessment of the orbits reveals no gross pathology. The paranasal sinuses are essentially clear. No mastoid or middle ear effusion. IMPRESSION: 1. A small T2 hyperintense focus is again demonstrated in the left frontal white matter, unchanged. 2. Imaging of the brain is otherwise unremarkable. In particular, no evidence of infarction, hemorrhage or space-occupying mass.
== END 2018-05-07 15:37 | disposition home or self-care (01) ==
LOC: DI 15:36
PROVIDERS: ATTEND Nurse Practitioner Adult Health
DX: R51 Headache (principal); R20.0 Anesthesia of skin
CPT/HCPCS: 70553; A9585

== ENCOUNTER 2018-11-12 14:02 | Emergency (ER) | payer OTHER ==
[2018-11-12 14:30] LABS: BILIRUBIN,URINE NEGATIVE (NEGATIVE); GLUCOSE, URINE (UA) NEGATIVE (NEGATIVE); KETONES,URINE (UA) NEGATIVE (NEGATIVE); LEUKOCYTE ESTERASE, URINE LARGE (NEGATIVE); NITRITE,URINE NEGATIVE (NEGATIVE); OCCULT BLOOD,URINE LARGE (NEGATIVE); PROTEIN,URINE NEGATIVE (NEGATIVE); UROBILINOGEN,URINE 0.2 (NORMAL) E.U./dL (NORMAL)
[2018-11-12 14:33] LABS: CLARITY,URINE HAZY (CLEAR); HCG UR QUAL NEGATIVE
[2018-11-12 14:44] LABS: BACTERIA,URINE Few /HPF (None Seen); RBC,URINE 0-5 /HPF (0-5); SQUAMOUS EPITHELIAL CELL,UR RARE Squamous (<= Few)
[2018-11-12] MEDS ORDERED: cephALEXin 250 MG CAPSULE PO STA (15:16)
[2018-11-12] MEDS ORDERED: PHENAZOPYRIDINE 100 MG TABLET PO STA (15:16)
--- NOTE | 2018-11-12 15:16 | ED Physician Documentation ---
PD HPI FEMALE - Stated complaint Stated Complaint: FEMALE - Chief complaint Chief Complaint: General - History obtained from History obtained from: Patient - History of Present Illness Timing - onset: How many weeks ago (1) Timing - details: Gradual onset Associated symptoms: Dysuria, Urinary frequency Contributing factors: Sexually active Similar symptoms before: Diagnosis (Treated for UTI about one month ago.) [place] - Additional information Additional information: The patient is a 33-year-old female who presents with dysuria that started about one week ago, and became worse today. She reports suprapubic discomfort and right flank discomfort. She reports associated nausea, without vomiting. She denies fever. Her last menstrual period was 3 weeks ago. She was treated for urinary tract infection about one month ago. She is also concerned about the possibility of sexually transmitted disease. Review of Systems Constitutional: denies: Fever Nose: denies: Congestion Throat: denies: Sore throat Respiratory: denies: Dyspnea, Cough GI: reports: Abdominal Pain (suprapubic), Nausea. denies: Vomiting, Diarrhea : reports: Dysuria, Frequency, LMP (3 weeks ago.). denies: Discharge, Vaginal bleeding Skin: reports: Rash (Reports rash on her right inner thigh.) Musculoskeletal: reports: Back pain (Mild right flank discomfort.) Neurologic: denies: Headache PD PAST MEDICAL HISTORY - Past Medical History Endocrine/Autoimmune: None - Past Surgical History Past Surgical History: No - Present Medications Home Medications: Ambulatory Orders Medication Instructions Recorded Confirmed Pnv95/Ferrous Fumarate/FA 1 tab PO DAILY 11/09/17 11/09/17 [ Tablet] Phenazopyridine HCl [Pyridium] 200 mg PO TID PRN #6 tablet 11/12/18 cephALEXin [Cephalexin] 500 mg PO TID #15 tablet 11/12/18 - Allergies Allergies/Adverse Reactions: Allergies Allergy/AdvReac Type Severity Reaction Status Date / Time ascorbic acid Allergy Severe hemolytic Verified 11/10/17 11:04 legumes Allergy Severe hemolytic Verified 11/10/17 11:02 peanut Allergy Severe hemolytic Verified 11/10/17 11:07 quinine Allergy Severe hemolytic Verified 11/10/17 11:07 soy Allergy Severe hemolytic Verified 11/10/17 11:09 soybean Allergy Severe hemolytic Verified 11/10/17 11:09 latex Allergy Unknown Verified 11/12/18 14:10 - Social History Does the pt smoke?: Yes Smoking Status: Current every day smoker Does the pt drink ETOH?: Yes Does the pt have substance abuse?: No - Immunizations Immunizations are current?: Yes PD ED PE NORMAL - Vitals Vital signs reviewed: Yes (normal) - General General: Alert and oriented X 3, Well developed/nourished - HEENT HEENT: Atraumatic - Cardiac Cardiac: RRR - Respiratory Respiratory: No respiratory distress, Clear bilaterally - Back Back: Other (Mild right flank tenderness to percussion.) - Derm Derm: Other (There is a small, less than 1 cm diameter, scaly patch on the right anteromedial thigh. There is no surrounding erythema.) - Extremities Extremities: No edema, No calf tenderness / cord - Neuro Neuro: Alert and oriented X 3, No motor deficit, Normal speech Results - Vitals Vitals: Oxygen O2 Source Room air - Labs Labs: Microbiology 11/12/18 14:21 Urine Culture - Final Urine,Clean Catch Escherichia Coli Laboratory Tests 11/12/18 11/12/18 14:11 14:21 Urine Color YELLOW Urine Clarity HAZY Urine pH 7.0 Ur Specific [place] <=1.005 Urine Protein NEGATIVE Urine Glucose (UA) NEGATIVE Urine Ketones NEGATIVE Urine Occult Blood LARGE H Urine Nitrite NEGATIVE Urine Bilirubin NEGATIVE Urine Urobilinogen 0.2 (NORMAL) Ur Leukocyte Esterase LARGE H Urine RBC 0-5 Urine WBC >25 H Ur Squamous Epith Cells RARE Squamous Urine Bacteria Few Ur Microscopic Review INDICATED Urine Culture Comments INDICATED Urine HCG, Qual NEGATIVE Chlam trachomat DNA PCR NEGATIVE N.gonorrhoeae DNA (PCR) NEGATIVE T. vaginalis (PCR) NEGATIVE PD MEDICAL DECISION MAKING - ED course Complexity details: reviewed results, re-evaluated patient, considered differential, d/w patient ED course: The patient's presentation is most consistent with acute urinary tract infection, with pyuria and bacteriuria. Urine culture and sensitivity are pending. GC and chlamydia are negative by urine test. Her presentation does not suggest sepsis, and I doubt pyelonephritis. Treatment in the emergency department included administration of cephalexin 500 mg orally and Pyridium 200 mg orally. She is being discharged with prescriptions for both. I discussed with her the expected course of illness, antibiotic treatment and outpatient follow-up, as well as potentially worrisome signs or symptoms that should prompt reevaluation in the emergency department. Departure - Departure Disposition: Home, Self Care Clinical Impression: Acute cystitis Qualifiers: Hematuria presence: without hematuria Qualified Code(s): N30.00 - Acute cystitis without hematuria Condition: Stable Instructions: ED UTI Cystitis Female Follow-Up: YOU ANTON ARNP [Primary Care Provider] - Prescriptions: cephALEXin [Cephalexin] 500 mg PO TID #15 tablet Phenazopyridine HCl [Pyridium] 200 mg PO TID PRN #6 tablet PRN Reason: dysuria Comments: Drink plenty of fluids, including cranberry juice. Take Cephalexin three times daily as prescribed. You can use Pyridium as prescribed if needed for painful urination. You can use Tylenol or ibuprofen as needed for fever or discomfort. Follow up with your primary physician within 2 weeks. Call to schedule appointment. Return to the emergency department if you develop increasing abdominal pain, fever with shaking chills, persistent vomiting, or otherwise worsening symptoms. Discharge Date/Time: 11/12/18 15:36
[2018-11-12 15:36] VITALS: BP 125/80
[2018-11-12 22:51] LABS: TRICHOMONAS VAGINALIS DNA NEGATIVE (NEGATIVE)
== END 2018-11-12 15:36 | disposition home or self-care (01) ==
LOC: ED 14:02
DX: N30.00 Acute cystitis without hematuria (principal); R21 Rash and other nonspecific skin eruption; F17.200 Nicotine dependence, unspecified, uncomplicated
CPT/HCPCS: 81001; 81025; 87086; 87181; 87491; 87591; 87661; 99283; A9270; 81003

== ENCOUNTER 2019-05-23 08:05 | Outpatient (CLI) | payer OTHER | END 2019-05-23 08:06 | disposition critical access hospital (66) | LOC: EMS 08:05 | PROVIDERS: ATTEND Surgery | DX: R45.1 Restlessness and agitation (principal) | CPT/HCPCS: A0425; A0429 ==

== ENCOUNTER 2019-05-23 08:21 | Emergency (ER) | payer OTHER ==
[2019-05-23 08:58] LABS: BASOPHILS % (AUTO) 0.2 %; EOSINOPHILS # (AUTO) 0.1 10^3/uL (0.0-0.7); EOSINOPHILS % (AUTO) 0.4 %; HGB - HEMOGLOBIN 14.8 g/dL (12.0-16.0); LYMPHOCYTES # (AUTO) 0.7 10^3/uL (1.5-3.5); LYMPHOCYTES % (AUTO) 5.9 %; MEAN CORPUSCULAR HEMOGLOBIN 35.2 pg (27.0-31.0); MEAN CORPUSCULAR HGB CONC 33.6 g/dL (32.0-36.0); MEAN CORPUSCULAR VOLUME 104.8 fL (81.0-99.0); MEAN PLATELET VOLUME 10.9 fL (7.9-10.8); MONOCYTES # (AUTO) 0.6 10^3/uL (0.0-1.0); MONOCYTES % (AUTO) 5.7 %; NEUTROPHILS # (AUTO) 9.9 10^3/uL (1.5-6.6); NEUTROPHILS % (AUTO) 87.3 %; PLT - PLATELET COUNT 237 10^3/uL (130-450); RED CELL DISTRIBUTION WIDTH 11.7 % (12.0-15.0); WHITE BLOOD COUNT 11.3 x10^3/uL (4.8-10.8)
[2019-05-23 09:08] LABS: ALBUMIN 5.3 g/dL (3.2-5.5); ALKALINE PHOSPHATASE 53 IU/L (42-121); ALT ALANINE AMINOTRANSFERASE 16 IU/L (10-60); AST ASPARTATE AMINOTRANSFERASE 23 IU/L (10-42); BILIRUBIN,TOTAL 1.9 mg/dL (0.2-1.0); BUN - BLOOD UREA NITROGEN 19 mg/dL (6-20); CALCIUM 9.8 mg/dL (8.5-10.3); CARBON DIOXIDE - CO2 22 mmol/L (21-32); CHLORIDE 102 mmol/L (101-111); CREATININE 0.9 mg/dL (0.4-1.0); GFR - MDRD 89 (>89); GLUCOSE 124 mg/dL (70-100); SODIUM 136 mmol/L (135-145); TOTAL PROTEIN 9.1 g/dL (6.7-8.2)
[2019-05-23 09:09] LABS: ACETAMINOPHEN < 10 ug/mL (10-30); ALBUMIN/GLOBULIN RATIO 1.4 (1.0-2.2); LIPASE 30 U/L (22-51); SALICYLATE < 6.0 mg/dL
--- NOTE | 2019-05-23 09:13 | ED Physician Documentation ---
PD HPI MHE - Stated complaint Stated Complaint: MHE - Chief complaint Chief Complaint: MHE - History obtained from History obtained from: Patient - History of Present Illness Primary symptom: Other Timing - onset: Today Similar symptoms before: Work up / diagnostics - Additional information Additional information: This is a 33-year-old woman who was brought in by ambulance after having been found in the street just standing, catatonic and not responding. Patient herself will not respond to me at all. She is laying back on the exam table very rigid with her mouth open and staring straight ahead occasionally blinking. Just prior to my entering the room however she had asked the nurse to remove her necklace. She actually verbally spoke with the words. Review of her records reveals that she had a similar episode in the past and had an extensive work-up including lumbar puncture and brain imaging. Review of Systems Unable to obtain: Other (PatientCatatonic and not responding to any verbal or is tactile interaction.) PD PAST MEDICAL HISTORY - Past Medical History Endocrine/Autoimmune: None - Past Surgical History Past Surgical History: No - Present Medications Home Medications: Ambulatory Orders Medication Instructions Recorded Confirmed Pnv No.95/Ferrous Fum/Folic AC 1 tab PO DAILY 11/09/17 11/09/17 [ Tablet] Phenazopyridine HCl [Pyridium] 200 mg PO TID PRN #6 tablet 11/12/18 cephALEXin [Cephalexin] 500 mg PO TID #15 tablet 11/12/18 - Allergies Allergies/Adverse Reactions: Allergies Allergy/AdvReac Type Severity Reaction Status Date / Time ascorbic acid Allergy Severe hemolytic Verified 05/23/19 08:31 legumes Allergy Severe hemolytic Verified 05/23/19 08:31 peanut Allergy Severe hemolytic Verified 05/23/19 08:31 quinine Allergy Severe hemolytic Verified 05/23/19 08:31 soy Allergy Severe hemolytic Verified 05/23/19 08:31 soybean Allergy Severe hemolytic Verified 05/23/19 08:31 latex Allergy Unknown Verified 05/23/19 08:31 - Social History Does the pt smoke?: Yes Smoking Status: Current every day smoker Does the pt drink ETOH?: Yes Does the pt have substance abuse?: No - Immunizations Immunizations are current?: Yes PD ED PE NORMAL - Vitals Vital signs reviewed: Yes - General General: Other (Staring straight ahead. Her arms and legs are bored stiff. She has her mouth open and breathing through her mouth. Occasionally blinking.) - HEENT HEENT: Atraumatic, PERRL, Other (Dry mucous membranes) - Neck Neck: Thyroid normal - Cardiac Cardiac: No murmur, Other (Tachycardic without murmur) - Respiratory Respiratory: No respiratory distress, Clear bilaterally (Will not follow command s to take a deep breath.) - Abdomen Abdomen: Normal bowel sounds, Soft - Derm Derm: Normal color, Warm and dry, No rash - Extremities Extremities: No deformity, Other (Her legs remain rigid with any attempts to move them however her upper extremities unable to bend the elbow and lift the arm off the bed. When I release it it slowly drifts back down to her side.) - Neuro Neuro: Other (Patient is not responding to me in any way or moving spontaneously other than to occasionally blink her eyes.) Results - Vitals Vitals: Vital Signs - 24 hr 05/23/19 05/23/19 05/23/19 18:42 19:15 19:51 Temperature Heart Rate 84 77 86 Respiratory 18 21 23 Rate Blood Pressure 84/70 L 108/70 87/59 L O2 Saturation 97 100 98 05/23/19 05/23/19 05/23/19 20:06 20:46 21:23 Temperature 37.3 C Heart Rate 82 86 84 Respiratory 21 20 25 H Rate Blood Pressure 92/65 91/64 96/66 O2 Saturation 100 99 05/23/19 05/23/19 05/24/19 22:15 23:45 00:04 Temperature 37.3 C 37.2 C Heart Rate 90 117 H 116 H Respiratory 23 23 28 H Rate Blood Pressure 97/68 124/90 H 128/88 H O2 Saturation 99 98 99 05/24/19 05/24/19 05/24/19 03:20 06:35 15:07 Temperature 37.2 C Heart Rate 90 88 98 Respiratory 19 16 12 Rate Blood Pressure 110/68 114/81 H 116/88 H O2 Saturation 97 98 100 05/24/19 17:18 Temperature Heart Rate 112 H Respiratory 12 Rate Blood Pressure 132/104 H O2 Saturation 98 Oxygen O2 Source Room air - EKG (time done) 1001 Rate: Tachy (122) Rhythm: Sinus tachycardia Intervals: Normal IA. No: Wide QRS Ischemia: Normal ST segments Compare to prior EKG: Old EKG unavailable - Labs Labs: Laboratory Tests 05/23/19 05/23/19 05/23/19 08:45 08:45 08:45 WBC 11.3 H RBC 4.20 Hgb 14.8 Hct 44.0 MCV 104.8 H MCH 35.2 H MCHC 33.6 RDW 11.7 L Plt Count 237 MPV 10.9 H Neut # (Auto) 9.9 H Lymph # (Auto) 0.7 L [place] # (Auto) 0.6 Eos # (Auto) 0.1 Baso # (Auto) 0.0 Absolute Nucleated RBC 0.00 Nucleated RBC % 0.0 D-Dimer Sodium 136 Potassium 4.1 Chloride 102 Carbon Dioxide 22 Anion Gap 12.0 BUN 19 Creatinine 0.9 Estimated GFR (MDRD) 89 Glucose 124 H Calcium 9.8 Phosphorus Magnesium Total Bilirubin 1.9 H AST 23 ALT 16 Alkaline Phosphatase 53 Total Creatine Kinase Troponin I High Sens Total Protein 9.1 H Albumin 5.3 Globulin 3.8 Albumin/Globulin Ratio 1.4 Lipase 30 TSH 0.37 Urine Color Urine Clarity Urine pH Ur Specific [place] Urine Protein Urine Glucose (UA) Urine Ketones Urine Occult Blood Urine Nitrite Urine Bilirubin Urine Urobilinogen Ur Leukocyte Esterase Urine RBC Urine WBC Ur Squamous Epith Cells Amorphous Sediment Urine Bacteria Urine Casts Ur Microscopic Review Urine Culture Comments Urine HCG, Qual Salicylates < 6.0 Urine Opiates Screen Ur Oxycodone Screen Urine Methadone Screen Ur Propoxyphene Screen Acetaminophen < 10 L Ur Barbiturates Screen Ur Tricyclics Screen Ur Phencyclidine Scrn Ur Amphetamine Screen U Methamphetamines Scrn U Benzodiazepines Scrn Urine Cocaine Screen U Cannabinoids Screen Ethyl Alcohol < 5.0 05/23/19 05/23/19 05/23/19 08:45 09:55 10:12 WBC RBC Hgb Hct MCV MCH MCHC RDW Plt Count MPV Neut # (Auto) Lymph # (Auto) [place] # (Auto) Eos # (Auto) Baso # (Auto) Absolute Nucleated RBC Nucleated RBC % D-Dimer Sodium Potassium Chloride Carbon Dioxide Anion Gap BUN Creatinine Estimated GFR (MDRD) Glucose Calcium Phosphorus Magnesium Total Bilirubin AST ALT Alkaline Phosphatase Total Creatine Kinase 217 Troponin I High Sens Total Protein Albumin Globulin Albumin/Globulin Ratio Lipase TSH Urine Color YELLOW Urine Clarity CLEAR Urine pH 5.5 Ur Specific [place] >1.030 >=1.030 H Urine Protein 100 H Urine Glucose (UA) NEGATIVE Urine Ketones >=80 H Urine Occult Blood TRACE-INTA Urine Nitrite NEGATIVE Urine Bilirubin NEGATIVE Urine Urobilinogen 0.2 (NORMAL) Ur Leukocyte Esterase NEGATIVE Urine RBC None Seen Urine WBC 0-3 Ur Squamous Epith Cells FEW Squamous Amorphous Sediment Rare Urine Bacteria Rare Urine Casts 0-2 Hyaline Casts Ur Microscopic Review INDICATED Urine Culture Comments NOT INDICATED Urine HCG, Qual NEGATIVE Salicylates Urine Opiates Screen NEGATIVE Ur Oxycodone Screen NEGATIVE Urine Methadone Screen NEGATIVE Ur Propoxyphene Screen NEGATIVE Acetaminophen Ur Barbiturates Screen NEGATIVE Ur Tricyclics Screen NEGATIVE Ur Phencyclidine Scrn NEGATIVE Ur Amphetamine Screen NEGATIVE U Methamphetamines Scrn NEGATIVE U Benzodiazepines Scrn NEGATIVE Urine Cocaine Screen NEGATIVE U Cannabinoids Screen NEGATIVE Ethyl Alcohol 05/23/19 05/23/19 05/23/19 12:25 12:25 12:25 WBC RBC Hgb Hct MCV MCH MCHC RDW Plt Count MPV Neut # (Auto) Lymph # (Auto) [place] # (Auto) Eos # (Auto) Baso # (Auto) Absolute Nucleated RBC Nucleated RBC % D-Dimer 209.7 Sodium Potassium Chloride Carbon Dioxide Anion Gap BUN Creatinine Estimated GFR (MDRD) Glucose Calcium Phosphorus 2.4 L Magnesium 1.8 Total Bilirubin AST ALT Alkaline Phosphatase Total Creatine Kinase Troponin I High Sens 38.3 H* Total Protein Albumin Globulin Albumin/Globulin Ratio Lipase TSH Urine Color Urine Clarity Urine pH Ur Specific [place] Urine Protein Urine Glucose (UA) Urine Ketones Urine Occult Blood Urine Nitrite Urine Bilirubin Urine Urobilinogen Ur Leukocyte Esterase Urine RBC Urine WBC Ur Squamous Epith Cells Amorphous Sediment Urine Bacteria Urine Casts Ur Microscopic Review Urine Culture Comments Urine HCG, Qual Salicylates Urine Opiates Screen Ur Oxycodone Screen Urine Methadone Screen Ur Propoxyphene Screen Acetaminophen Ur Barbiturates Screen Ur Tricyclics Screen Ur Phencyclidine Scrn Ur Amphetamine Screen U Methamphetamines Scrn U Benzodiazepines Scrn Urine Cocaine Screen U Cannabinoids Screen Ethyl Alcohol 05/23/19 15:27 WBC RBC Hgb Hct MCV MCH MCHC RDW Plt Count MPV Neut # (Auto) Lymph # (Auto) [place] # (Auto) Eos # (Auto) Baso # (Auto) Absolute Nucleated RBC Nucleated RBC % D-Dimer Sodium Potassium Chloride Carbon Dioxide Anion Gap BUN Creatinine Estimated GFR (MDRD) Glucose Calcium Phosphorus Magnesium Total Bilirubin AST ALT Alkaline Phosphatase Total Creatine Kinase Troponin I High Sens 32.1 H* Total Protein Albumin Globulin Albumin/Globulin Ratio Lipase TSH Urine Color Urine Clarity Urine pH Ur Specific [place] Urine Protein Urine Glucose (UA) Urine Ketones Urine Occult Blood Urine Nitrite Urine Bilirubin Urine Urobilinogen Ur Leukocyte Esterase Urine RBC Urine WBC Ur Squamous Epith Cells Amorphous Sediment Urine Bacteria Urine Casts Ur Microscopic Review Urine Culture Comments Urine HCG, Qual Salicylates Urine Opiates Screen Ur Oxycodone Screen Urine Methadone Screen Ur Propoxyphene Screen Acetaminophen Ur Barbiturates Screen Ur Tricyclics Screen Ur Phencyclidine Scrn Ur Amphetamine Screen U Methamphetamines Scrn U Benzodiazepines Scrn Urine Cocaine Screen U Cannabinoids Screen Ethyl Alcohol PD MEDICAL DECISION MAKING - ED course Complexity details: reviewed results, re-evaluated patient, d/w patient ED course: The patient's laboratory studies showed a normal CBC and CMP. She was not and the urine drug screen was negative. Urinalysis was negative. Toxicology screens were normal and TSH was normal. Her troponin came back little elevated at 38.3, And a 3-hour repeat was declining. Patient was given a liter of fluids and remained tachycardic and in fact when I went into talk to her and just lightly touched her her heart rate shot up to 160. Not why the initial troponin had been ordered. Heart rate came back down into the 120s she was given an additional liter of fluids and medicated with Ativan 2 mg IV after which she closed her eyes and was sleeping. Following the repeat troponin I went in to talk to her and she could tell me she was at the hospital. She says she is under a lot of stress but she lives alone. She has family but no one that we can call and talk to right now. She is very difficult to understand because she is whispering and still drifting off to sleep. She was no longer rigid and could move all of her extremities normally. Her heart rate was down to the 80s. When aroused it would go up into the 120s. Were going to see if social work is still here to come and evaluate the patient. This episode seems very similar to when she was admitted previously and transferred to [facility]. At that admission she is actually been admitted to the hospital here had CTs of the head as well as MRI of the brain and a lumbar puncture none of the work-up shed any light on the symptoms of the catatonia that had been present. I did discuss the case with the hospitalist, Dr Cardoso, and she did not feel that she met any criteria to be admitted to the hospital that the troponins were stable and not elevating. This could even be related to the episodes of tachycardia that she was having. She did not feel that an Echo was necessary at this time either. Social work saw the patient and have put a DCR consult in. DCR worker called me I gave her some information over the phone and she will begin to see the patient shortly. We were able to obtain the psychiatric admission orders from [facility]. 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 They had started her on in [place] daily as well as Ativan 3 times daily. Is unclear whether or not the patient is currently taking those medications. Departure - Departure Disposition: 02 Transfer Acute Care Hosp Clinical Impression: Schizophrenia Qualifiers: Schizophrenia type: unspecified Qualified Code(s): F20.9 - Schizophrenia, unspecified Condition: Good
[2019-05-23] MEDS ORDERED: SODIUM CHLORIDE 0.9% 1,000 ML IV ONE ×2 (09:37→13:43)
[2019-05-23 10:22] LABS: MUDS CUTOFF CONCENTRATIONS CUTOFF CONC BELOW:
[2019-05-23 10:25] LABS: CLARITY,URINE CLEAR (CLEAR); GLUCOSE, URINE (UA) NEGATIVE (NEGATIVE); KETONES,URINE (UA) >=80 mg/dL (NEGATIVE); LEUKOCYTE ESTERASE, URINE NEGATIVE (NEGATIVE); NITRITE,URINE NEGATIVE (NEGATIVE); OCCULT BLOOD,URINE TRACE-INTA (NEGATIVE); PH,URINE 5.5 PH (5.0-7.5); PROTEIN,URINE 100 mg/dL (NEGATIVE); UROBILINOGEN,URINE 0.2 (NORMAL) E.U./dL (NORMAL)
[2019-05-23 10:31] LABS: BILIRUBIN,URINE NEGATIVE (NEGATIVE); ICTOTEST,URINE NEGATIVE
[2019-05-23 10:34] LABS: COCAINE SCREEN URINE NEGATIVE (NEGATIVE); METHAMPHETAMINES SCREEN, URINE NEGATIVE (NEGATIVE); OPIATE SCREEN, URINE NEGATIVE (NEGATIVE)
[2019-05-23 10:35] LABS: AMPHETAMINE SCREEN,URINE NEGATIVE (NEGATIVE); BENZODIAZEPINES SCREEN, URINE NEGATIVE (NEGATIVE); METHADONE SCREEN, URINE NEGATIVE (NEGATIVE); OXYCODONE SCREEN, URINE NEGATIVE (NEGATIVE); PROPOXYPHENE SCREEN, URINE NEGATIVE (NEGATIVE); TRICYCLIC ANTIDEPRESSANT,URINE NEGATIVE (NEGATIVE)
[2019-05-23 10:38] LABS: RBC,URINE None Seen /HPF (0-5)
[2019-05-23 10:39] LABS: AMORPHOUS SEDIMENT,UR Rare /LPF; BACTERIA,URINE Rare /HPF (None Seen); CASTS, URINE 0-2 Hyaline Casts /LPF; SQUAMOUS EPITHELIAL CELL,UR FEW Squamous (<= Few)
[2019-05-23 10:56] LABS: HCG UR QUAL NEGATIVE
[2019-05-23] MEDS ORDERED: LORazepam 2 MG/ML VIAL IVP STA (12:09)
[2019-05-23 12:43] LABS: MAGNESIUM 1.8 mg/dL (1.7-2.8); PHOSPHORUS 2.4 mg/dL (2.5-4.6)
[2019-05-23] MEDS ORDERED: DEXTROSE 5%-0.45% NACL 1,000 ML IV ONE (16:37)
[2019-05-24] MEDS ORDERED: LORazepam 1 MG TABLET PO STA (00:23)
[2019-05-24 17:18] VITALS: BP 132/104
== END 2019-05-24 17:33 | disposition short-term general hospital (02) ==
LOC: EDUNIT# → ED 08:21
DX: F20.2 Catatonic schizophrenia (principal); R00.0 Tachycardia, unspecified; R74.8 Abnormal levels of other serum enzymes; F17.200 Nicotine dependence, unspecified, uncomplicated
CPT/HCPCS: 36415; 80320; 80329; 81001; 81025; 82550; 83690; 83735; 84100; 84484; 85379; 93005; 96361; 96374; 99285; J2060; J8499; 80053; 80306; 80307; 81003; 84443; 85025; 87086

== ENCOUNTER 2019-08-14 08:03 | Emergency (ER) | payer OTHER ==
--- NOTE | 2019-08-14 10:16 | ED Physician Documentation ---
PD HPI SYNCOPE - Stated complaint Stated Complaint: SYNCOPE - Chief complaint Chief Complaint: Neuro - History obtained from History obtained from: Patient - History of Present Illness Witnessed: Unwitnessed Timing - onset: Today Duration: Seconds Preceding symptoms: Vision changes, Light headed Associated symptoms: No: Seizure, Headache Contributing factors: Decreased PO intake, Just stood up Injury occurred: None Similar symptoms before: Has not had sx before Recently seen: Emergency Dept - Additional information Additional information: 34-year-old female with history of schizophrenia and catatonia has not slept well for the past 2 nights and this morning she was at her bedside praying and when she went to stand up she had a syncopal episode. She states that she felt lightheaded and dizzy and passed out. She did not injure herself she is uncertain exactly how long she was out. She feels recovered now and feels normal. She feels like she might be dehydrated. She does have a practitioner that prescribes her medications for her she last talked to her on telehealth 5 days ago. Review of Systems Constitutional: denies: Fever, Chills, Sweats Eyes: denies: Decreased vision Ears: denies: Ear pain Nose: denies: Rhinorrhea / runny nose, Congestion Throat: denies: Sore throat Cardiac: denies: Chest pain / pressure, Palpitations Respiratory: denies: Dyspnea, Cough GI: denies: Abdominal Pain, Nausea, Vomiting : denies: Dysuria, Frequency Skin: denies: Rash Musculoskeletal: denies: Neck pain, Back pain, Extremity pain Neurologic: reports: Other (tremor on the left side with nervousness). denies: Generalized weakness, Focal weakness, Numbness Psychiatric: reports: Hallucinations, Anxiety, Insomnia PD PAST MEDICAL HISTORY - Past Medical History Endocrine/Autoimmune: None Psych: Schizophrenia - Past Surgical History Past Surgical History: No - Present Medications Home Medications: Ambulatory Orders Medication Instructions Recorded Confirmed Pnv No.95/Ferrous Fum/Folic AC 1 tab PO DAILY 11/09/17 11/09/17 [ Tablet] Phenazopyridine HCl [Pyridium] 200 mg PO TID PRN #6 tablet 11/12/18 cephALEXin [Cephalexin] 500 mg PO TID #15 tablet 11/12/18 - Allergies Allergies/Adverse Reactions: Allergies Allergy/AdvReac Type Severity Reaction Status Date / Time ascorbic acid Allergy Severe hemolytic Verified 05/23/19 08:31 legumes Allergy Severe hemolytic Verified 05/23/19 08:31 peanut Allergy Severe hemolytic Verified 05/23/19 08:31 quinine Allergy Severe hemolytic Verified 05/23/19 08:31 soy Allergy Severe hemolytic Verified 05/23/19 08:31 soybean Allergy Severe hemolytic Verified 05/23/19 08:31 latex Allergy Unknown Verified 05/23/19 08:31 - Social History Does the pt smoke?: Yes Smoking Status: Current every day smoker Does the pt drink ETOH?: Yes Does the pt have substance abuse?: No - Immunizations Immunizations are current?: Yes - POLST Patient has POLST: No PD ED PE NORMAL - Vitals Vital signs reviewed: Yes (hypertesive mild ) - General General: Alert and oriented X 3, No acute distress, Well developed/nourished - HEENT HEENT: Atraumatic, PERRL, EOMI, Ears normal, Moist mucous membranes, Pharynx benign, Dentition benign - Neck Neck: Supple, no meningeal sign, No bony TTP - Cardiac Cardiac: RRR, No murmur - Respiratory Respiratory: No respiratory distress, Clear bilaterally - Abdomen Abdomen: Normal bowel sounds, Soft, Non tender, Non distended, No organomegaly - Back Back: No CVA TTP, No spinal TTP - Derm Derm: Normal color, Warm and dry, No rash - Extremities Extremities: No deformity, No edema - Neuro Neuro: talent assistant 2-12 intact, No motor deficit, No sensory deficit, Other (There is a delay in execution of speech commands.) Eye Opening: Spontaneous Motor: Obeys Commands Verbal: Oriented GCS Score: 15 - Psych Psych: Normal mood, Normal affect Results - Vitals Vitals: Vital Signs - 24 hr 08/14/19 08/14/19 08:10 10:31 Temperature 36.6 C Heart Rate 73 76 Respiratory 18 16 Rate Blood Pressure 120/89 H 126/91 H O2 Saturation 100 97 Oxygen O2 Source Room air - EKG (time done) 0823 Rate: Rate (enter#) (72) Rhythm: NSR Compare to prior EKG: Changed from prior EKG (SPT 05-23-2019 rate has decreased) Computer interpretation: Agree with computer - Labs Labs: Laboratory Tests 08/14/19 08/14/19 08/14/19 08:17 10:22 10:22 WBC RBC Hgb Hct MCV MCH MCHC RDW Plt Count MPV Neut # (Auto) Lymph # (Auto) Mcdonald # (Auto) Eos # (Auto) Baso # (Auto) Absolute Nucleated RBC Nucleated RBC % Sodium Potassium Chloride Carbon Dioxide Anion Gap BUN Creatinine Estimated GFR (MDRD) Glucose POC Whole Bld Glucose 116 H Calcium Total Bilirubin AST ALT Alkaline Phosphatase Troponin I High Sens Total Protein Albumin Globulin Albumin/Globulin Ratio Lipase Urine Color YELLOW Urine Clarity CLEAR Urine pH 6.0 Ur Specific [place] <=1.005 <1.005 Urine Protein NEGATIVE Urine Glucose (UA) NEGATIVE Urine Ketones NEGATIVE Urine Occult Blood NEGATIVE Urine Nitrite NEGATIVE Urine Bilirubin NEGATIVE Urine Urobilinogen 0.2 (NORMAL) Ur Leukocyte Esterase NEGATIVE Ur Microscopic Review NOT INDICATED Urine Culture Comments NOT INDICATED Urine HCG, Qual NEGATIVE 08/14/19 08/14/19 08/14/19 10:30 10:30 10:30 WBC 7.0 RBC 4.00 L Hgb 14.1 Hct 42.1 MCV 105.3 H MCH 35.3 H MCHC 33.5 RDW 11.6 L Plt Count 314 MPV 9.5 Neut # (Auto) 5.4 Lymph # (Auto) 1.2 L Mcdonald # (Auto) 0.4 Eos # (Auto) 0.0 Baso # (Auto) 0.0 Absolute Nucleated RBC 0.00 Nucleated RBC % 0.0 Sodium 139 Potassium 3.8 Chloride 104 Carbon Dioxide 22 Anion Gap 13.0 BUN 9 Creatinine 0.9 Estimated GFR (MDRD) 88 L Glucose 122 H POC Whole Bld Glucose Calcium 9.4 Total Bilirubin 1.7 H AST 17 ALT 12 Alkaline Phosphatase 53 Troponin I High Sens < 2.3 L Total Protein 8.3 H Albumin 4.6 Globulin 3.7 Albumin/Globulin Ratio 1.2 Lipase 27 Urine Color Urine Clarity Urine pH Ur Specific [place] Urine Protein Urine Glucose (UA) Urine Ketones Urine Occult Blood Urine Nitrite Urine Bilirubin Urine Urobilinogen Ur Leukocyte Esterase Ur Microscopic Review Urine Culture Comments Urine HCG, Qual Procedures - IVC sono (time) 0950 Bedside IVC sono: IVC measures (cm) (1.12), Dehydration (est 1+ liter deficit) PD MEDICAL DECISION MAKING - ED course Complexity details: reviewed results, re-evaluated patient, considered differential, d/w patient ED course: 34-year-old female who was on her knees praying when she stood up too quickly she had a syncopal episode. She is found to be mildly dehydrated on interrogation the inferior vena cava. The remainder of her work-up is unremarkable and the event is attributed to standing up too fast while dehydrated. Departure - Departure Disposition: 01 Home, Self Care Clinical Impression: Syncope Qualifiers: Syncope type: vasovagal syncope Qualified Code(s): R55 - Syncope and collapse Condition: Stable Instructions: ED Dehydration, ED Syncope Vasovagal Follow-Up: [facility] [Provider Group] Discharge Date/Time: 08/14/19 11:20
[2019-08-14 10:31] VITALS: BP 126/91
[2019-08-14 10:47] LABS: BASOPHILS % (AUTO) 0.3 %; HGB - HEMOGLOBIN 14.1 g/dL (12.0-16.0); LYMPHOCYTES # (AUTO) 1.2 10^3/uL (1.5-3.5); LYMPHOCYTES % (AUTO) 17.1 %; MEAN CORPUSCULAR HEMOGLOBIN 35.3 pg (27.0-31.0); MEAN CORPUSCULAR HGB CONC 33.5 g/dL (32.0-36.0); MEAN CORPUSCULAR VOLUME 105.3 fL (81.0-99.0); MEAN PLATELET VOLUME 9.5 fL (7.9-10.8); MONOCYTES # (AUTO) 0.4 10^3/uL (0.0-1.0); MONOCYTES % (AUTO) 5.4 %; NEUTROPHILS # (AUTO) 5.4 10^3/uL (1.5-6.6); NEUTROPHILS % (AUTO) 76.9 %; PLT - PLATELET COUNT 314 10^3/uL (130-450); RED CELL DISTRIBUTION WIDTH 11.6 % (12.0-15.0)
[2019-08-14 10:55] LABS: ALBUMIN 4.6 g/dL (3.2-5.5); ALBUMIN/GLOBULIN RATIO 1.2 (1.0-2.2); BILIRUBIN,TOTAL 1.7 mg/dL (0.2-1.0); CALCIUM 9.4 mg/dL (8.5-10.3); CREATININE 0.9 mg/dL (0.4-1.0); TOTAL PROTEIN 8.3 g/dL (6.7-8.2)
[2019-08-14 10:57] LABS: BILIRUBIN,URINE NEGATIVE (NEGATIVE); GLUCOSE, URINE (UA) NEGATIVE (NEGATIVE); KETONES,URINE (UA) NEGATIVE (NEGATIVE); LEUKOCYTE ESTERASE, URINE NEGATIVE (NEGATIVE); NITRITE,URINE NEGATIVE (NEGATIVE); OCCULT BLOOD,URINE NEGATIVE (NEGATIVE); PROTEIN,URINE NEGATIVE (NEGATIVE); UROBILINOGEN,URINE 0.2 (NORMAL) E.U./dL (NORMAL)
[2019-08-14 11:01] LABS: CLARITY,URINE CLEAR (CLEAR)
[2019-08-14 11:02] LABS: HCG UR QUAL NEGATIVE
== END 2019-08-14 11:20 | disposition home or self-care (01) ==
LOC: ED 08:03
DX: R55 Syncope and collapse (principal); E86.0 Dehydration; F20.9 Schizophrenia, unspecified
CPT/HCPCS: 36415; 80053; 81001; 81003; 81025; 83690; 84484; 85025; 87086; 93005; 99283; 99284